=== PATIENT | female | born 1940 | race African-American/Black ===

== ENCOUNTER 2017-03-02 17:42 | Emergency (ER) | payer MEDICARE, BC ==
[~2017-03-02] VITALS: Ht 162.6 cm; Wt 100.0 kg
[~2017-03-02 17:42] MED LIST: AMLODIPINE5 MG PO; GLIPIZIDE10 M3; LIDODERM5 % EX; METFORMIN500 M1 PO; TRAMADOL HCL50 MG PO
[2017-03-02 18:34] LABS: HEMATOCRIT 38.1 % (37.0-47.0); HEMOGLOBIN 12.2 g/dl (12.0-16.0); IMMATURE GRANULOCYTES 0.5 % (0.0-1.0); MEAN CELL VOLUME 89.2 fL CALC (80.0-100.0); MEAN CORPUSCULAR HGB 28.6 pG CALC (26.0-32.0); NEUT# 5.57 thou/uL (2.00-7.15); RED BLOOD COUNT 4.27 mill/uL (4.20-5.60); RED CELL DISTRI WIDTH 14.8 % (11.5-15.5)
[2017-03-02 18:45] LABS: ALBUMIN 4.2 g/dL (3.2-5.0); BILIRUBIN, TOTAL 0.2 mg/dL (0.0-1.4); CALCIUM 9.5 mg/dL (8.4-10.2); CREATININE 1.2 mg/dL (0.5-1.0); POTASSIUM 4.1 mmol/l (3.5-5.1); TOTAL PROTEIN 7.4 g/dL (6.3-8.2)
[2017-03-02 20:04] LABS: URINE BILIRUBIN - DIPSTICK NEGATIVE (NEGATIVE); URINE BLOOD DIPSTICK SMALL (NEGATIVE); URINE COLOR YELLOW; URINE GLUCOSE - DIPSTICK >=1000 mg/dL (NEGATIVE); URINE KETONE NEGATIVE (NEGATIVE); URINE LEUK ESTERASE NEGATIVE (NEGATIVE); URINE NITRITE - DIPSTICK NEGATIVE (Negative); URINE PROTEIN - DIPSTICK 100 mg/dL (NEG-TRACE); URINE SPECIFIC GRAVITY >=1.030; URINE UROBILINOGEN - DIPSTICK 0.2 E.U./dL (0.2)
[2017-03-02 20:05] LABS: URINE CLARITY CLEAR
[2017-03-02 20:12] LABS: URINE SQUAMOUS EPITHELIAL CELL FEW EPI/hpf (0-FEW)
[2017-03-02 20:14] LABS: INFLUENZA A NONE DETECTED (NONE DETECT); INFLUENZA B NONE DETECTED (NONE DETECT)
[2017-03-02 20:56] VITALS: BP 157/80
== END 2017-03-02 21:19 | disposition left against medical advice (07) ==
LOC: ED 17:42
PROVIDERS: Emergency Medicine
DX: R06.02 Shortness of breath (principal); R09.02 Hypoxemia; J06.9 Acute upper respiratory infection, unspecified; Z91.19 Patient's noncompliance with other medical treatment and regimen; R05 Cough; F17.200 Nicotine dependence, unspecified, uncomplicated; I10 Essential (primary) hypertension; R94.31 Abnormal electrocardiogram [ECG] [EKG]

== ENCOUNTER 2017-03-03 18:01 | Emergency (ER) | payer MEDICARE, BC ==
[~2017-03-03] VITALS: Ht 162.6 cm; Wt 91.0 kg
[2017-03-03 19:26] LABS: HEMOGLOBIN 12.7 g/dl (12.0-16.0); IMMATURE GRANULOCYTES 0.4 % (0.0-1.0); MEAN CELL VOLUME 89.3 fL CALC (80.0-100.0); MEAN CORPUSCULAR HGB 28.3 pG CALC (26.0-32.0); MEAN CORPUSCULAR HGB CONC 31.8 g/L CALC (32.0-36.0); NEUT# 4.61 thou/uL (2.00-7.15); RED BLOOD COUNT 4.48 mill/uL (4.20-5.60); RED CELL DISTRI WIDTH 14.7 % (11.5-15.5)
[2017-03-03 19:46] LABS: ALBUMIN 4.4 g/dL (3.2-5.0); ALKALINE PHOSPHATASE 107 u/l (38-126); ANION GAP 16 (6-22 (CALC)); BILIRUBIN, TOTAL 0.4 mg/dL (0.0-1.4); BUN 30 mg/dL (8-23); BUN/CREATININE RATIO 31 (12-20 (CALC)); CALCIUM 9.9 mg/dL (8.4-10.2); CARBON DIOXIDE 31 mmol/l (22-30); CHLORIDE 103 mmol/l (95-108); GFR 54 ML/MIN (>=60 (CALC)); GFR FOR AFR.AMER. > 60 ML/MIN (>=60 (CALC)); GLUCOSE 204 mg/dL (82-115); POTASSIUM 4.4 mmol/l (3.5-5.1); SGOT/AST 30 u/l (9-36); SGPT/ALT 21 u/l (11-66); SODIUM 146 mmol/l (137-146); TOTAL PROTEIN 7.5 g/dL (6.3-8.2)
[2017-03-03 19:47] LABS: ACT PARTIAL THROMBO TIME 22.6 SECONDS (20.0-32.5); INTERNATIONAL NORMALIZED RATIO 0.9 RATIO (0.7-1.3); PROTHROMBIN TIME 10.3 SECONDS (9.0-12.5)
[2017-03-03 19:58] LABS: MYOGLOBIN 88 ng/mL (0 - 62)
[2017-03-04 00:11] VITALS: BP 140/74
== END 2017-03-04 00:14 | disposition short-term general hospital (02) ==
LOC: ED 18:01 → ED-I 20:50 → ED 03-04 00:14
PROVIDERS: Emergency Medicine
DX: R06.02 Shortness of breath (principal); R09.02 Hypoxemia; I10 Essential (primary) hypertension; F17.200 Nicotine dependence, unspecified, uncomplicated; E11.9 Type 2 diabetes mellitus without complications; Z79.84 Long term (current) use of oral hypoglycemic drugs

== ENCOUNTER → 2018-06-04 | Outpatient (REF) | payer MEDICARE, BC ==
[2018-06-04 10:52] LABS: ALBUMIN 4.2 g/dL (3.2-5.0); BILIRUBIN, TOTAL 0.3 mg/dL (0.0-1.4); CHOLESTEROL HDL RATIO 4.8 (<4.4 (CALC)); CREATININE 1.1 mg/dL (0.5-1.0); POTASSIUM 3.8 mmol/l (3.5-5.1); TOTAL PROTEIN 7.2 g/dL (6.3-8.2)
[2018-06-04 11:04] LABS: HEMATOCRIT 39.7 % (37.0-47.0); HEMOGLOBIN 12.9 g/dl (12.0-16.0); MEAN CELL VOLUME 88.6 fL CALC (80.0-100.0); MEAN CORPUSCULAR HGB 28.8 pG CALC (26.0-32.0); MEAN CORPUSCULAR HGB CONC 32.5 g/L CALC (32.0-36.0); RED BLOOD COUNT 4.48 mill/uL (4.20-5.60); RED CELL DISTRI WIDTH 13.6 % (11.5-15.5)
[2018-06-04 11:20] LABS: TSH, 3RD GENERATION 11.5 uIU/mL (0.47 - 4.68)
== END | disposition home or self-care (01) ==
LOC: LABSPEC 09:38
PROVIDERS: ATTEND Nurse Practitioner Family
DX: E11.65 Type 2 diabetes mellitus with hyperglycemia (principal); I10 Essential (primary) hypertension

== ENCOUNTER 2018-07-08 09:34 | Inpatient (IN) | payer MEDICARE, BC ==
[~2018-07-08] VITALS: Ht 162.6 cm; Wt 95.3 kg
--- NOTE | 2018-07-08 09:45 | NUR ---
WHEELCHAIR TO ER ROOM 9, TO BED
--- NOTE | 2018-07-08 10:00 | NUR ---
PATIENT REPORTS SOB XMONTHS WITH NON-PRODUCTIVE COUGH. LUNG SOUNDS CLEAR BILATERALLY.
[2018-07-08 10:01] LABS: HEMATOCRIT 37.5 % (37.0-47.0); HEMOGLOBIN 11.8 g/dl (12.0-16.0); IMMATURE GRANULOCYTES 0.4 % (0.0-5.0); MEAN CELL VOLUME 90.8 fL CALC (80.0-100.0); MEAN CORPUSCULAR HGB 28.6 pG CALC (26.0-32.0); MEAN CORPUSCULAR HGB CONC 31.5 g/L CALC (32.0-36.0); NEUT# 4.21 thou/uL (2.00-7.15); RED BLOOD COUNT 4.13 mill/uL (4.20-5.60); RED CELL DISTRI WIDTH 13.4 % (11.5-15.5)
--- NOTE | 2018-07-08 10:15 | NUR ---
RT UNSUCCESSFUL IN OBTAINING ABG, MADE AWARE
[2018-07-08 10:16] LABS: ALBUMIN 4.3 g/dL (3.2-5.0); BILIRUBIN, TOTAL 0.4 mg/dL (0.0-1.4); CREATININE 1.2 mg/dL (0.5-1.0); TOTAL PROTEIN 7.6 g/dL (6.3-8.2)
[2018-07-08] MEDS ORDERED: VISTARIL 50MG C50 MG PO (10:21)
[2018-07-08] MEDS ORDERED: MEVACOR10 MG PO (10:22)
[2018-07-08] MEDS ORDERED: GABAPENTIN100 MG PO (10:23)
[2018-07-08] MEDS ORDERED: LOSARTAN POTASS50 MG PO (10:24)
[2018-07-08] MEDS ORDERED: LEVOTHYROXIN125 MCG PO (10:25)
[2018-07-08] MEDS ORDERED: TRESIBA FL100 UNIT/M SC (10:26)
--- NOTE | 2018-07-08 10:30 | NUR ---
HOME MEDICATIONS BROUGHT IN BY FAMILY, REVIEWED WITH PATIENT.
--- NOTE | 2018-07-08 10:39 | NUR ---
AT BEDSIDE TO ATTEMPT TO COLLECT BLOOD GAS.
--- NOTE | 2018-07-08 11:10 | NUR ---
URINE SAMPLE COLLECTED VIA STRAIGHT CATH. PATIENT TOLERATED WELL.
[2018-07-08 11:23] LABS: URINE BILIRUBIN - DIPSTICK NEGATIVE (NEGATIVE); URINE BLOOD DIPSTICK TRACE-INTACT (NEGATIVE); URINE COLOR YELLOW; URINE GLUCOSE - DIPSTICK NEGATIVE (NEGATIVE); URINE KETONE NEGATIVE (NEGATIVE); URINE LEUK ESTERASE NEGATIVE (NEGATIVE); URINE NITRITE - DIPSTICK NEGATIVE (Negative); URINE PH 5.5 (4.5-8.0); URINE PROTEIN - DIPSTICK 100 mg/dL (NEG-TRACE); URINE SPECIFIC GRAVITY 1.025; URINE UROBILINOGEN - DIPSTICK 0.2 E.U./dL (0.2)
[2018-07-08 11:35] LABS: URINE SQUAMOUS EPITHELIAL CELL FEW EPI/hpf (0-FEW)
--- NOTE | 2018-07-08 11:56 | NUR ---
RT AT BEDSIDE FOR NEB TREATMENT.
--- NOTE | 2018-07-08 12:40 | NUR ---
REPORT CALLED TO ROSE PETERSON.
--- NOTE | 2018-07-08 12:45 | NUR ---
PATIENT TRANSPORTED TO [facility] VIA STRETCHER WITH TELE AND O2 IN PLACE. ROSE PETERSON AWARE OF PATIENT ARRIVAL TO UNIT. CARE RELINQUISHED.
--- NOTE | 2018-07-08 12:59 | NUR ---
PT TRANSPORTED TO [facility] VIA STRETCHER ACCOMPIANED BY KHRIS DICKSON @[id number]. VS DONE. PT A/O X3. SPEECH IS CLEAR. PERRLA. RESP SHALLOW. LUNG SOUNDS CLEAR. SOB NOTED. O2 @2L. TELE IN PLACE. BOWEL SOUNDS ACTIVE X4. PT C/O RUQ TENDERNESS. REPOSITIONED FOR COMFORT. STRONG RADIAL, WEAK PEDAL PULSES. #20 LAC SL. FLUSHED AND PATENT. SITE APPEARS HEALTHY. PT DENIES ANY PAIN OR NEEDS. POC DISCUSSED. SAFETY PRECAUTIONS IN PLACE. CALL LIGHT IN REACH. WILL CONTINUE TO MONITOR.
--- NOTE | 2018-07-08 13:06 | NUR ---
PT VERY UPSET, WALKED UP TO NURSES STATION W/ TELE REMOVED. PT STATES HE IS READY TO GO HOME. ENCOURAGED PT TO STAY BUT HE REFUSES. HE SIGNED AMA PAPERS AND GOES BACK INTO HIS ROOM. UPON HIM AND HIS LEAVING SHE TOLD HIM HE NEEDS TO STAY TO TALK W/ THE DOCTOR BEFORE DISCHARGE. PT DECIDES HE WILL STAY UNTIL 4PM IF NO DOCTOR SHOWS UP HE WILL LEAVE.
[2018-07-08 13:38] VITALS: BP 183/100
--- NOTE | 2018-07-08 13:43 | NUR ---
PT BP READING 183/100, PULSE 91. KRYSTAL,FRONT DESK CLERK NOTFIED. NEW ORDERS AT THIS TIME. WILL CONTINUE TO MONITOR.
--- NOTE | 2018-07-08 14:38 | NUR ---
PT VERY ANXIOUS, PT REQUESTING SOMETHING TO HELP HER REST AND A MASK TO PUT ON HER FACE INSTEAD OF THE NASAL CANNULA. ROSA RICE MADE AWARE. NO NEW MEDICATION ORDERS TO DUE TO PT HAVING SOME SOB, INSTRUCTED TO MONITOR. RT CALLED TO ASSIST PT. RT IN ROOM W/ PT AT THIS TIME. WILL CONTINUE TO ,MONITOR.
[2018-07-08 15:08] VITALS: BP 190/95
--- NOTE | 2018-07-08 17:43 | NUR ---
PT LYING IN BED. NO C/O PAIN OR NEEDS. BREATHING APPEARS EASIED AT THIS TIME; O2 ON, HOB ELEVATED. CALL LIGHT IN REACH. WILL CONTINUE TO MONITOR.
[2018-07-08 18:30] VITALS: BP 184/92
--- NOTE | 2018-07-08 18:30 | NUR ---
PT READING 184/92, PULSE 104. KRYSTAL LEE NOTIFIED. NEW ORDERS AT THIS TIME.
--- NOTE | 2018-07-08 19:00 | NUR ---
REPORT RECEIVED FROM ROSE PETERSON. PT RESTING IN BED. NO SIGNS OR SYMPTOMS OF DISTRESS A THIS TIME. WILL CONTINUE TO MONITOR.
--- NOTE | 2018-07-08 20:30 | NUR ---
PT RESTING IN BED. PT ASKING FOR SOMETHING TO HEP HER SLEEP, TRAUMA SURGEON MD TO BE NOTIFIED. PT ON O2 @ 2L VIA NC. SAFETY PRECUATIONS IN PLACE WILL CONTINUE TO MONITOR.
[2018-07-09] VITALS (17 sets, daily range): BP systolic 107–200; BP diastolic 54–110
--- NOTE | 2018-07-09 00:40 | NUR ---
PT REPORTS HAVING A HEAD ACHE OVER CALL DE LEON, WHEN ENTERING PT ROOM, PT DENIES HAVING ANY PAIN. SAFETY PRECAUTIONS IN PLACE. WILL CONTINUE TO MONITOR.
--- NOTE | 2018-07-09 04:00 | NUR ---
PT RESTING IN BED. ALERT AND ORIENTED. PT REPORTS FEELING SHORT OF BREATH. RESPIRATIONS SHALLOW O2 STATS @ 98%. NO SIGNS OF DISTRESS AT THIS TIME. WILL CONTINUE TO MONITOR.
[2018-07-09 06:30] LABS: HEMATOCRIT 36.4 % (37.0-47.0); HEMOGLOBIN 11.8 g/dl (12.0-16.0); IMMATURE GRANULOCYTES 0.3 % (0.0-5.0); MEAN CELL VOLUME 88.8 fL CALC (80.0-100.0); MEAN CORPUSCULAR HGB 28.8 pG CALC (26.0-32.0); MEAN CORPUSCULAR HGB CONC 32.4 g/L CALC (32.0-36.0); NEUT# 7.36 thou/uL (2.00-7.15); RED BLOOD COUNT 4.1 mill/uL (4.20-5.60); RED CELL DISTRI WIDTH 13.1 % (11.5-15.5)
[2018-07-09 06:45] LABS: ANION GAP 15 (6-22 (CALC)); BUN 15 mg/dL (8-23); BUN/CREATININE RATIO 29 (12-20 (CALC)); CALCULATED LDLCHOLESTEROL 69 mg/dL (62-129 (CALC)); CARBON DIOXIDE 23 mmol/l (22-30); CHLORIDE 107 mmol/l (95-108); CHOLESTEROL HDL RATIO 2.6 (<4.4 (CALC)); CREATININE 0.5 mg/dL (0.5-1.0); GFR > 60 ML/MIN (>=60 (CALC)); GFR FOR AFR.AMER. > 60 ML/MIN (>=60 (CALC)); HDL CHOLESTEROL 47 mg/dL (>=40); POTASSIUM 3.6 mmol/l (3.5-5.1); SODIUM 141 mmol/l (137-146); TOTAL TRIGLYCERIDES 36 mg/dl (30-149); VLDL CHOLESTROL 7 mg/dl (0-48 (CALC))
[2018-07-09 06:47] LABS: TOTAL CHOLESTEROL 123 mg/dl (0-199)
--- NOTE | 2018-07-09 07:30 | NUR ---
ASSESSMENT IS COMPLETED: IV SITE IS FREE FROM REDNESS OR EDEMA. HR IS REG, PULSES ARE STRONG X4, ABD IS SOFT WITH ACTIVE BS. BREATH SOUNDS ARE CLEAR. BILATERALLY., PT WAS ON THE BSC. THIS AM. CONTINUE TO OSEBRVE AND MONITOR.
--- NOTE | 2018-07-09 09:12 | NUR ---
RECEIVED A CALL FROM HER DAUGHTER NEO INQUIRED "HOW WAS SHE DOING, DID THE DR COME AND SEE HER YET?"
[2018-07-09 12:33] LABS: CREATININE 1.1 mg/dL (0.5-1.0); POTASSIUM 4.3 mmol/l (3.5-5.1)
--- NOTE | 2018-07-09 12:45 | NUR ---
PT IS RELAXING IN BED WITH NO DISTRESS NOTED. IV SITE IS FREE FROM REDNESS OR EDMEA. FAMILY IN THE ROOM.
--- NOTE | 2018-07-09 13:45 | NUR ---
DR. PERRIN. IN TO VISIT WITH PT.
--- NOTE | 2018-07-09 16:30 | NUR ---
PT HAS BEEN TRYING TO REST. NO DISTRESS NOTED. IV SITE IS FREE FROM REDNESS OR EDEMA.
--- NOTE | 2018-07-09 18:30 | NUR ---
SPOKE WITH RE: LAB RESULT OF GLUCOSE 417 NEW ORDER OBTAINED AND ADMINISTERED
--- NOTE | 2018-07-09 19:15 | NUR ---
bed alarm sounding. pt on bsc. iv pulled out. linens changed. assisted to bed. iv restarted. bed alarm reactivated.
--- NOTE | 2018-07-09 19:50 | NUR ---
1924-PATIENT RESTING IN BED WITH O2 VIA NASAL CANNULA IN PLACE. PATIENT IS ANXIOUS AND STATES THAT SHE CAN'T BREATH-PATIENT REPOSITION AND SITTING UPRIGHT-VERY ANXIOUS. PATIENT IS TACHYPENIC AND TACHYCARDIC. O2 SATS FELL FROM LOW 90'S TO MID 80'5 DOWN TO 79. RT CALLED STAT. PATIENT PLACED ON VENTI-MASK BUT STILL ONLY UP TO THE 80'S O2 SATS. IV SITE TO LEFT AC HEALTHY 1929-RT AT BEDSIDE AND DR. ZARCO CALLED-ORDERS RECEIVED TO PLACE ON BI-PAP AND TRANSFER TO ICU. 1944-PATIENT PLACED ON BI-PAP BY RT AND PATIENT TRANSFERRED TO ICU BED8 VIA BED. PATIENT RESPONDING WELL TO BIPAP-RESP HAVE SLOWED AND PATIENT HAS CALMED DOWN. O2 SATS MUCH IMPROVED TO HIGH 90'S. BP HIGH ON ARRIVAL TO ICU. BEDSIDE REPORT GIVEN TO THERESE PINEOD.
--- NOTE | 2018-07-09 19:54 | NUR ---
PT ARRIVED TO UNIT VIA BED WITH 3 MEDSURG STAFF; PT SITTING UP IN BED WITH BIPAP IN PLACE; ALERT AND ORIENTED; BREATHING LABORED. SINUS TACH AT 110 ON TELEMETRY; BLOOD PRESSURE 200/110; APRESOLINE GIVEN IMMEDIATELY AND CONNECTED TO ATTACHMENTS. RT AND BEDSIDE AND BEDSIDE REPORT RECEIVED FROM KHRIS LOGAN.
--- NOTE | 2018-07-09 19:58 | NUR ---
RADIOLOGY AT BEDSIDE FOR STAT XRAY.
--- NOTE | 2018-07-09 20:01 | NUR ---
DR. BERNAL NOTIFED OF ABG'S RESULTS AND CLINICAL PRESENATION OF PATIENT; NO NEW ORDERS AT THIS TIME. BLOOD PRESSURE DOWN TO 134/104. RESPIRATIONS ARE IMPROVING CURRENLTY 30 RPM; 99% OXYGEN SATURATION WITH BIPAP SETTINGS AT 40% FIO2.
--- NOTE | 2018-07-09 20:14 | NUR ---
RT DECREASED FIO2 TO 30%; WILL MONTIOR OXYGEN SATURATIONS. PT MOSTLY CONCERNED THAT HER FEET ARE ITCHING.
--- NOTE | 2018-07-09 20:54 | NUR ---
DR. BERNAL NOTIFIED OF FS 378; NEW ORDER FOR 10 UNITS OF NOVOLOG TONIGHT ALONG WITH SCHEDULED LEVEMIR.
--- NOTE | 2018-07-09 21:00 | NUR ---
DAUGHTER BONILLA RETURN CALL AND UPDATED ON HER MOTHER STATUS AND THAT SHE HAD BEEN TRANSFERRED TO ICU8 AND PLACE ON BIPAP FOR RESP ISSUES. BONILLA VERBALIZED UNDERSTANDING. WILL CALL ICU FOR FURTHER INFO.
--- NOTE | 2018-07-09 21:24 | NUR ---
BIPAP REMOVED AND PT PLACED ON 3L VIA NC TO TAKE PO MEDICATIONS; TOLERATED WELL. SITTING UP 97% ON OXYGEN. BROTHER FROM [place] AND BOTH DAUGHTERS CALLED FOR UPDATES; PERMISSION RECEIVED FROM PT TO UPDATE FAMILY.
--- NOTE | 2018-07-09 21:46 | NUR ---
DAUGHTER AT BEDSIDE. RT REAPPLIED BIPAP AND GAVE BREATHING TREATMENT.
--- NOTE | 2018-07-09 22:36 | NUR ---
PT IS ANXIOUS WITH ELEVATED BLOOD PRESSURE. [id number] MIDSTERNAL CHEST PAIN 8/10 AND STATES SHE WANTS SOME WATER. TYLENOL AND LABETOLOL ADMINISTERED. RT AT BEDSIDE FOR EKG AND STAT TROP ORDERED.
--- NOTE | 2018-07-09 23:10 | NUR ---
PT STATES THAT CHEST PAIN HAS SUBSIDED; BLOOD PRESSURE DOWN TO 107/54. EKG REMAINS THE SAME. TROPONIN CANCELLED LAST 4 DRAWN HAVE BEEN NEGATIVE. PT RESTING IN HIGH FOWLERS WITH BIPAP ON.
[2018-07-10] VITALS (17 sets, daily range): BP systolic 100–166; BP diastolic 50–86
--- NOTE | 2018-07-10 01:38 | NUR ---
PT RESTING WITH NO SIGNS OF DISTRESS. BIPAP SETTINGS UNCHANGED. IV SITE APPEARS HEALTHY AND FLUSHES. VS STABLE.
--- NOTE | 2018-07-10 04:45 | NUR ---
PT ASLEEP WITH NO SIGNS OF DISRESS; RESPIRATIONS EVEN AND UNLABORED ON BIPAP. BLOOD SUGAR 144. PT ENCOURAGED TO SIT UP ON BSC TO VOID; URINARY INCONTINENCE NOTED TO BRIEF; HYGIENE PROVIDED AND PT SITTING UP ON BSC CURRENTLY.
--- NOTE | 2018-07-10 05:22 | NUR ---
ASSISTED BACK INTO BED; NO FURTHER VOID, ONLY LARGE INCONTENCE IN BRIEF. RT AT BEDSIDE FOR BREATHING TREATMENT.
[2018-07-10 05:26] LABS: HEMATOCRIT 37.4 % (37.0-47.0); HEMOGLOBIN 11.8 g/dl (12.0-16.0); IMMATURE GRANULOCYTES 0.6 % (0.0-5.0); MEAN CELL VOLUME 90.1 fL CALC (80.0-100.0); MEAN CORPUSCULAR HGB 28.4 pG CALC (26.0-32.0); MEAN CORPUSCULAR HGB CONC 31.6 g/L CALC (32.0-36.0); NEUT# 10.67 thou/uL (2.00-7.15); RED BLOOD COUNT 4.15 mill/uL (4.20-5.60); RED CELL DISTRI WIDTH 13.4 % (11.5-15.5)
[2018-07-10 05:52] LABS: ALBUMIN 4.3 g/dL (3.2-5.0); BILIRUBIN, TOTAL 0.4 mg/dL (0.0-1.4); CREATININE 1.7 mg/dL (0.5-1.0); MAGNESIUM 2.1 mg/dL (1.6-2.3); TOTAL PROTEIN 7.2 g/dL (6.3-8.2)
--- NOTE | 2018-07-10 07:00 | NUR ---
PT RESTING IN BED AT THIS TIME. WILL CONTINUE TO MONITOR
--- NOTE | 2018-07-10 07:44 | NUR ---
RT AT BEDSIDE. BIPAP REMOVED AT THIS TIME. PT IS ALERT AND ORIENTED X3. SHIFT ASSESSMENT COMPLETED AT THIS TIME. PT SET UP FOR AM MEAL. IV PATENT. CALL LIGHT IN REACH. WILL CONTINUE TO MONITOR.
--- NOTE | 2018-07-10 10:55 | NUR ---
DR PERRIN AT BEDSIDE AT THIS TIME WITH DAUGHTER IN ROOM TO DISCUSS PLAN OF CARE. NEW ORDERS RECEIVED.
--- NOTE | 2018-07-10 11:42 | NUR ---
RADIOLOGY AT BEDSIDE TO COMPLETE KIDNEY ULTRASOUND.
--- NOTE | 2018-07-10 12:03 | NUR ---
PT SET UP FOR LUNCH MEAL AT THIS TIME.
--- NOTE | 2018-07-10 13:20 | NUR ---
PT TO RADIOLOGY VIA WHEELCHAIR ACCOMPANIED BY NURSE. PT REMAINED ON O2 THROUGHOUT TRANSFER.
--- NOTE | 2018-07-10 13:35 | NUR ---
PT RETURNED FROM RADIOLOGY VIA WHEELCHAIR IN STABLE CONDITION. PLACED BACK ON SALES REPRESENTATIVE SALES MANAGER. CALL LIGHT IN REACH. WILL CONTINUE TO [facility].
--- NOTE | 2018-07-10 14:03 | NUR ---
SPOKE WITH DESMOND IN CASE MANAGEMENT WHO SPOKE TO ENA. PT IS REFUSING HOME O2 AND REFUSING CPAP PER ENA. SHE IS DUE FOR A NEW CPAP SEPTEMBER 2018. DAUGHTER NEO NOTIFIED. ASKED TO BRING IN HOME MACHINE TOMORROW. DAUGHTER VERBALIZED UNDERSTANDING.
--- NOTE | 2018-07-10 14:40 | NUR ---
SNACK PROVIDED PER PT REQUEST
--- NOTE | 2018-07-10 16:05 | NUR ---
STRATEGIC PARTNERSHIP MANAGER AT BEDSIDE AT THIS TIME
--- NOTE | 2018-07-10 16:50 | NUR ---
PT SITTING UP IN BED WATCHING TV. RESP ARE EVEN AND UNLABORED. NO DISTRESS NOTED. CALL LIGHT IN REACH. WILL CONTINUE TO MONITOR.
--- NOTE | 2018-07-10 16:59 | NUR ---
BROTHER FROM [place] CALLED REQUESTING CODE STATING HE HAD NOT RECEIVED CODE FROM SISTER AT THIS TIME. ASKED PT IF IT WAS OK TO GIVE CODE AND HEALTH INFORMATION TO BROTHER OVER PHONE. PT SHOOK HEAD INDICATING NO. PT DID DECIDE THAT SHE WOULD SPEAK TO BROTHER VIA TELEPHONE. PHONE PROVIDED.
--- NOTE | 2018-07-10 17:47 | NUR ---
PT SET UP WITH EVENING MEAL TRAY
--- NOTE | 2018-07-10 18:45 | NUR ---
RECEIVED PT SITTING ON BEDSIDE COMMODE. PT VOIDED 300ML OF CLEAR YELLOW URINE. ASSISTED BACK IN TO BED WITH MINIMAL ASSIST. PT DENIES ANY SHORTNESS OF BREATH WITH EXERTION. ASSESSMENT COMPLETE. ALERT, ORIENTED X3. LULA BREATH SOUNDS CLEAR, DIMINISHED BASES. 02 AT 3L PER NC. SKIN WARM AND DRY, INTACT. DISCUSSED PLAN OF CARE. DENIES ANY NEEDS. CALL LIGHT WITHIN REACH.
--- NOTE | 2018-07-10 20:30 | NUR ---
PTS DAUGHTER AT BEDSIDE. PT CONVERSING.
--- NOTE | 2018-07-10 21:38 | NUR ---
HS SNACK PROVIDED. ACCU CHECK 398, NOTIFIED DR BERNAL, NEW ORDERES RECEIVED. PT TOLERATED HS MEDS WELL. WATCHING TV.
--- NOTE | 2018-07-10 22:31 | NUR ---
RT AT BEDSIDE, PT PLACED ON BIPAP.
[2018-07-11] VITALS (13 sets, daily range): BP systolic 112–200; BP diastolic 63–101
--- NOTE | 2018-07-11 00:13 | NUR ---
PT RESTING WITH EYES CLOSED. BIPAP IN PLACE. RESP EASY. EASLIY AROUSABLE. ANTIBIOTICS INITIATED. DENIES ANY NEEDS.
--- NOTE | 2018-07-11 02:00 | NUR ---
PT IN MID-FOWLERS, EYES CLOSED. RESP EASY. SB WITH HR OF 59. SCHEDLUED MEDS GIVEN.
--- NOTE | 2018-07-11 04:33 | NUR ---
NO CHANGES IN ASSESSMENT. RT AT BEDSIDE. NO SIGNS OF DISTRESS. RESP NONLABORED.
[2018-07-11 05:28] LABS: HEMATOCRIT 33.5 % (37.0-47.0); HEMOGLOBIN 10.7 g/dl (12.0-16.0); IMMATURE GRANULOCYTES 0.4 % (0.0-5.0); MEAN CELL VOLUME 90.8 fL CALC (80.0-100.0); MEAN CORPUSCULAR HGB CONC 31.9 g/L CALC (32.0-36.0); NEUT# 7.81 thou/uL (2.00-7.15); RED BLOOD COUNT 3.69 mill/uL (4.20-5.60); RED CELL DISTRI WIDTH 13.2 % (11.5-15.5)
[2018-07-11 05:47] LABS: ALBUMIN 3.5 g/dL (3.2-5.0); BILIRUBIN, TOTAL 0.3 mg/dL (0.0-1.4); CREATININE 1.6 mg/dL (0.5-1.0); MAGNESIUM 2.1 mg/dL (1.6-2.3); POTASSIUM 4.8 mmol/l (3.5-5.1)
--- NOTE | 2018-07-11 05:51 | NUR ---
PT AWAKEN FOR AM NEX TX, RT AT BEDSIDE. SCHEDULED MEDS GIVEN AND TOLERATED WELL.
--- NOTE | 2018-07-11 07:30 | NUR ---
PT RESTING IN BED ON BIPAP. ADMISSION ASSESSMENT COMPLETED. IV PATENT X1. BIPAP REMOVED AND PT SET UP FOR AM MEAL. CALL LIGHT IN REACH. WILL CONTINUE TO MONITOR.
--- NOTE | 2018-07-11 07:35 | NUR ---
BIPAP STANDBY. PLACED ON 3L NC.
--- NOTE | 2018-07-11 08:21 | NUR ---
PT REMOVED O2 NC. PT STATES THAT SHE WANTS TO GO HOME. EXPLAINED THAT O2 SAT DROPS WHEN SHE TAKES OFF THE OXYGEN AND THAT SHE NEEDS TO LEAVBE IT ON. PT CONTINUES TO REQUEST TO GO HOME. EXPLAINED THAT SHE WILL NEED TO TALK TO THE DOC ABOUT DISCHARGE.
--- NOTE | 2018-07-11 09:30 | NUR ---
PT RESTING IN BED WATCHING TV. RESP ARE EVEN AND UNLABORED. NO DISTRESS NOTED. CALL LIGHT IN REACH. WILL CONTINUE TO MONITE.
--- NOTE | 2018-07-11 11:30 | NUR ---
DR PERRIN AT BEDSIDE TO DISCUSS PLAN OF CARE.
--- NOTE | 2018-07-11 11:40 | NUR ---
PT SET UP FOR NOON MEAL.
--- NOTE | 2018-07-11 12:21 | NUR ---
VISITORS IN ROOM.PT SITTIN UP VISITING WITH VISITORS. CALL LIGHT IN REACH. WILL CONTINUE TO MONITOR
--- NOTE | 2018-07-11 12:45 | NUR ---
PT ASSISTED TO BSC TO VOID. PT GIVEN PERSONAL CARE AND LINENS CHANGED AT THIS TIME. PT TOLERATED WELL.
--- NOTE | 2018-07-11 12:53 | NUR ---
APRESOLINE GIVEN IV PUSH PER MAR
--- NOTE | 2018-07-11 13:15 | NUR ---
PHYSICAL THERAPY INTO ROOM TO SEE PATIENT
--- NOTE | 2018-07-11 13:16 | NUR ---
PT WITH COMPLAINTS OF IV SITE BURNING. IV DC'D TO LAC.
--- NOTE | 2018-07-11 13:46 | NUR ---
PHYSICAL THERAPY REPORTS TO NURSE THAT PTWITH STEADY GAIT
--- NOTE | 2018-07-11 14:12 | NUR ---
16 FR FISHER PLACED USING STERILE TECHNIQUE. IMMEADIATE RETURN OF URINE. PT TOLERATED WELL
--- NOTE | 2018-07-11 14:30 | NUR ---
UNSUCCESSFUL ATTMEPTS FOR IV ACCESS. AWAITING ADDITIONAL STAFF FOR ASSISTANCE
--- NOTE | 2018-07-11 14:50 | NUR ---
THERAPY DONE FOR EVAL (LOW) AND INITIATED GAIT WITH A ROLLING WALKER AND O2 AM-PAC 6 CLICK SCORE WAS 14 INDICATIVE OF DC TO A SNF AT THIS TIME.
--- NOTE | 2018-07-11 15:36 | NUR ---
PT NOW REFUSING IV ACCESS AFTER ADDITIONAL STAFF ATTEMPTED WITH ULTRASOUND MACHINE. DR. PERRIN NOTIFIED OK'D VERBAL HOLD ON IV MEDS UNTIL MIDLINE IS PLACED.
--- NOTE | 2018-07-11 16:29 | NUR ---
PT RESTING IN BED WATCHING TV. RESP ARE EVEN AND UNLABORED. NO DISTRESS NOTED. CALL LIGHT INR EACH. WILL CONTINUE TO MONITR
--- NOTE | 2018-07-11 17:35 | NUR ---
PT SET UP WITH PM MEAL
--- NOTE | 2018-07-11 18:25 | NUR ---
PT RESTING IN BED WATCHING TV CALL LIGHT IN REACH. WILL CONTINUE TO MONITOR.
--- NOTE | 2018-07-11 19:30 | NUR ---
PATIENT LYING IN BED. ALERT AND ORIENTED X3. ON 3 LITERS NASAL CANULA HUMIDIFIED. NO COMPLAINTS OF PAIN OR SHORTNESS OF BREATH. DAUGHTER DROPPED OFF HOME CPAP AND PATIENT BECAME UPSET, DAUGHTER SAID GOOD NIGHT AND WALKED OUT UPSET WELL. RT NOTIFIED OF HOME CPAP AT BEDSIDE. NO IV SITE. PATIENT EDUCATED OF DIABETIC AND LOW SODIUM DIET. CALL LIGHT WITHIN REACH.
--- NOTE | 2018-07-11 22:12 | NUR ---
PATIENT SELF REPOSITIONS, WATCHING TV. ON 3 LITERS NASAL CANNULA HUMIDIFIED. NO COMPLAINTS OF PAIN OR SHORTNESS OF BREATH. NO ACUTE DISTRESS SHOWN. CALL LIGHT WITHIN REACH.
[2018-07-12] VITALS (10 sets, daily range): BP systolic 105–164; BP diastolic 55–90
--- NOTE | 2018-07-12 00:05 | NUR ---
PATIENT SLEEPING AND WEARING HER BIPAP. NO NEEDS AT THIS TIME.
--- NOTE | 2018-07-12 02:05 | NUR ---
PATIENT SLEEPING AND WEARING BIPAP. CALL LIGHT WITHIN REACH.
--- NOTE | 2018-07-12 04:08 | NUR ---
BIPAP IN PLACE, PATIENT SLEEPING. NO ACUTE DISTRESS SHOWN. IFSHER INTACT. CALL LIGHT WITHIN REACH.
--- NOTE | 2018-07-12 04:27 | NUR ---
PATIENT REQUESTING BIPAP OFF, PUT HER ON 3 LITERS NASAL CANULA HUMIDIFIED, SHE AWOKE CONFUSED AND WAS REORIENTED. RT NOTIFIED.
--- NOTE | 2018-07-12 06:12 | NUR ---
PATIENT LYING IN BED, ABLE TO SELF REPOSITION. ON 3 LITERS NASAL CANNULA. NO COMPLAINTS OF PAIN OR SHORTNESS OF BREATH, NO ACUTE DISTRESS SHOWN. PATIENT REQUESTING SOMETHING TO EAT AND I OFFERED HER A SNACK BEFORE BREAKFAST BUT SHE REQUESTS "FOOD", LET HER KNOW BREAKFAST WILL COME SOON. BROUGHT HER APPLE JUICE PER REQUEST. CALL LIGHT WITHIN REACH.
--- NOTE | 2018-07-12 07:15 | NUR ---
PT RESTING IN BED WATCHING TV. PT IS ALERT AND ORIENTED X3. SHIFT ASSESSMENT COMPLETED AT THIS TIME. CALL LIGHT IN REACH. WILL CONTINUE TO MONITOR
--- NOTE | 2018-07-12 07:29 | NUR ---
PT ASSISTED UP TO CHAIR FOR BREAKFAST AND AM CARE. EXPLAINED TO PT IMPORTANCE OF NOT JUST LAYING IN BED. PT VERBALIZED UNDERSTANDING.
--- NOTE | 2018-07-12 08:30 | NUR ---
PT REMAINS UP IN CHAIR AT THIS TIME. AM CARE PROVIDED. CALL LIGHT IN REACH. WILL COTNINUE TO MONITOR.
--- NOTE | 2018-07-12 09:00 | NUR ---
AM MEDS GIVEN PER MAR
--- NOTE | 2018-07-12 09:20 | NUR ---
PT TO [facility] WHEELCHAIR FOR PICC LINE INSERTION ACCOMPANIED BY NURSE IN STABLE CONDITION ON O2 3L NC.
--- NOTE | 2018-07-12 10:36 | NUR ---
PT RETURNED FROM RADIOLOGY VIA IN STABLE CONDITION. PT ASSISTED TO RECLINER. CALL LIGHT IN REACH. WILL CONTINUE TO MONITOR.
--- NOTE | 2018-07-12 10:39 | NUR ---
EXLAINED TO PT THAT RT HAD EXAMINED HOME CPAP MACHINE AND MACHINE IS IN WORKING CONDITION. PT VERBALIZED UNDERSTANDING.
--- NOTE | 2018-07-12 10:55 | NUR ---
AM LABS DRAWN FROM [facility] TO [facility].
--- NOTE | 2018-07-12 11:00 | NUR ---
DR PERRIN AT BEDSIDE TO DISCUSS PLAN OF CARE
--- NOTE | 2018-07-12 11:15 | NUR ---
PT INTO ROOM [facility] PT
[2018-07-12 11:24] LABS: HEMATOCRIT 33.9 % (37.0-47.0); HEMOGLOBIN 10.7 g/dl (12.0-16.0); IMMATURE GRANULOCYTES 0.7 % (0.0-5.0); MEAN CELL VOLUME 91.6 fL CALC (80.0-100.0); MEAN CORPUSCULAR HGB 28.9 pG CALC (26.0-32.0); MEAN CORPUSCULAR HGB CONC 31.6 g/L CALC (32.0-36.0); NEUT# 5.89 thou/uL (2.00-7.15); RED BLOOD COUNT 3.7 mill/uL (4.20-5.60); RED CELL DISTRI WIDTH 13.2 % (11.5-15.5)
--- NOTE | 2018-07-12 11:30 | NUR ---
PT SET UP FOR NOON MEAL
[2018-07-12 11:53] LABS: ALBUMIN 3.5 g/dL (3.2-5.0); BILIRUBIN, TOTAL 0.3 mg/dL (0.0-1.4); CREATININE 1.3 mg/dL (0.5-1.0); MAGNESIUM 1.9 mg/dL (1.6-2.3); POTASSIUM 4.6 mmol/l (3.5-5.1)
--- NOTE | 2018-07-12 12:47 | NUR ---
The patient presents up in bedside chair. She is dyspneic 2 at rest on 2 liters NC. She performs sit to stand and ambulates in place 30 sec with 1 rest period. She does so with mod assist of 1 Am Pac score is 11 indicating she would do well in LTAC or swing bed for best recovery. Our plan is to continue monitored rehab- she is given a written exercise program of APs, quad sets and gluteal sets and reviewed priniciples of controlled breathing
--- NOTE | 2018-07-12 12:50 | NUR ---
PT ASSISTED BACK TO BED PER PT REQUEST
--- NOTE | 2018-07-12 15:04 | NUR ---
SEAN GAVE ROOM 272 FOR MED SURG ASSIGNMENT
--- NOTE | 2018-07-12 15:28 | NUR ---
NURSE T NURSE REPORT PROVIDED TO Emile SMITH LPN VIA PHONE
--- NOTE | 2018-07-12 15:56 | NUR ---
PT TO ROOM 272 VIA WHEELCHAIR ACCOMPANIED BY NURSE.
--- NOTE | 2018-07-12 16:35 | NUR ---
pt is currently sitting in the [facility].
--- NOTE | 2018-07-12 16:35 | NUR ---
pt arrived from icu via wc accompanied by staff/ at 1610. iv site is free from redness or edema. reynolds intact
--- NOTE | 2018-07-12 18:04 | NUR ---
DISREGARD EVAL. WRONG PATIENT.
--- NOTE | 2018-07-12 19:00 | NUR ---
REPORT RECIEVED FROM ROSE ESTRADA. PT RESTING IN CHAIR AT BEDSIDE TALKING ON THE PHONE. SAFETY PRECAUTIONS IN PLACE. WILL CONTINUE TO MONITOR.
--- NOTE | 2018-07-12 21:30 | NUR ---
PT RESTING IN BED. PT CONFUSED ABOUT WHERE SHE IS, ASKING "WHERE AM I AT" REORIENTED PT. RESPIRATIONS SHALLOW ON O2 @ 3L, LUNGS SOUND DIMINISHED. PEDAL PULSES WEAK. PICC IN UPPER RIGHT ARM PATENT AND APPEARS HEALTHY. TELE MONITOR IN PLACE. FISHER DRAINING TO GRAVITY. WILL CONTINUE TO MONITOR.
[2018-07-13] VITALS (8 sets, daily range): BP systolic 147–214; BP diastolic 68–97
--- NOTE | 2018-07-13 02:04 | NUR ---
PT RESTING IN BED WITH EYES CLOSED. RESPIRATIONS SHALLOW ON 02 @ 3L DAILY NC. TELE MONITOR IN PLACE. CALL DE LEON WITHIN REACH WILL CONTINUE TO MONITOR.
--- NOTE | 2018-07-13 04:16 | NUR ---
PT RESTING IN BED. PT DENIES ANY PAIN OR DISCOMFORT. RESPIRATIONS SHALLOW ON O2 @ 3L, VIA NC. SAFETY PRECAUTIONS IN PLACE. WILL CONTINUE TO MONITOR.
[2018-07-13 05:32] LABS: HEMATOCRIT 33.3 % (37.0-47.0); HEMOGLOBIN 10.6 g/dl (12.0-16.0); IMMATURE GRANULOCYTES 0.8 % (0.0-5.0); MEAN CELL VOLUME 89.3 fL CALC (80.0-100.0); MEAN CORPUSCULAR HGB 28.4 pG CALC (26.0-32.0); MEAN CORPUSCULAR HGB CONC 31.8 g/L CALC (32.0-36.0); NEUT# 6.41 thou/uL (2.00-7.15); RED BLOOD COUNT 3.73 mill/uL (4.20-5.60); RED CELL DISTRI WIDTH 12.8 % (11.5-15.5)
[2018-07-13 06:07] LABS: ALBUMIN 3.5 g/dL (3.2-5.0); BILIRUBIN, TOTAL 0.3 mg/dL (0.0-1.4); CREATININE 1.1 mg/dL (0.5-1.0); MAGNESIUM 1.9 mg/dL (1.6-2.3); POTASSIUM 5.1 mmol/l (3.5-5.1); TOTAL PROTEIN 6.1 g/dL (6.3-8.2)
--- NOTE | 2018-07-13 07:05 | NUR ---
PT REPORT RECIEVED FROM KHRIS GREY. PT SLEEPING. NO S/S OF DISTRESS. CALL LIGHT IN REACH. WILL CONTINUE TO MONITOR.
--- NOTE | 2018-07-13 08:05 | NUR ---
PT A/O X3. SPEECH IS CLEAR. RESP EVEN AND UNLABORED. LUNG SOUNDS CLEAR. TELE IN PLACE. O2 @3L ON PT. BOWEL SOUNDS ACTIVE X4. STRONG RADIAL AND PEDAL PULSES. PICC JOSIE SL. FLUSHED AND PATENT. SITE APPEARS HEALTHY. FISHER INTACT; DRAINING CLEAR YELLOW URINE. PT DENIES ANY PAIN OR NEEDS. POC DISCUSSED. SAFETY PRECAUTIONS IN PLACE. CALL LIGHT IN REACH. WILL CONTINUE TO MONITOR.
--- NOTE | 2018-07-13 12:00 | NUR ---
PHYSICAL THERAPY IN TO SEE PT
--- NOTE | 2018-07-13 12:05 | NUR ---
PT EATING LUNCH. NO C/O PAIN OR NEEDS. TELE IN PLACE. CALL LIGHT IN REACH. WILL CONTINUE TO MONITOR.
--- NOTE | 2018-07-13 12:05 | NUR ---
Pt. found resting in recliner with O2 at 3L via NC. Pt. refused gait training, however in agreement to participate in therapeutic exercises x 15 minutes. O2 sats monitored and maintained above 94% during exercise. In sitting the pt. was provided with instruction and demonstration followed by completion of seated active heel - toe raises, AROM bilateral knee extensions, marching and PROM shoulder flexion below 90 degrees. Each ex. completed 2 sets of 10 repetitions with rest periods between sets. Pt. left resting comfortably in recliner without questions/concerns. Call light reviewed and left within reach. Treatment time was 10:40 AM to 11 AM.
--- NOTE | 2018-07-13 16:39 | NUR ---
PT SLEEPING IN BED. NO C/O PAIN OR NEEDS. CALL LIGHT IN REACH. WILL CONTINUE TO MONITOR.
--- NOTE | 2018-07-13 19:47 | NUR ---
REPORT RECIVED FROM ROSE PETERSON. PT RESTING IN BED. RESPIRATIONS SHALLOW ON O2 @ 3L, LUNGS SOUND DIMINISHED. REPOSITIONED PT PER PT REQUEST. PT STATES "AT NIGHT I START TO GET THIS NAGGING AT THE BACK OF NECK, I GET A HEAD ACHE" OFFERED PT WARM PACK. FISHER DRAINING TO GRAVITY. TRIPPLE LUMMEN PICC IN UPPER RIGHT ARM APPEARS HEALTHY. SAFETY PRECAUTIONS IN PLACE. WILL CONTINUET TO MONITOR.
--- NOTE | 2018-07-14 | NUR ---
PT RESTING IN BED WITH EYES CLOSED. RESPIRATIONS SHALLOW/NONLABORED ON O2 @ 3L, VIA NC. SAFETY PRECAUTIONS IN PLACE. WILL CONTINUE TO MONITOR.
[2018-07-14 00:13] VITALS: BP 146/54
--- NOTE | 2018-07-14 04:10 | NUR ---
PT RESTING IN BED WITH EYES CLOSED. RESPIRATIONS EVEN AND UNLABORED ON O2 @ 3L. NO SIGNS OR SYMPTOMS OF DISTRESS. SAFETY PRECAUTIONS IN PLACE. WILL CONTINUE TO MONITOR.
[2018-07-14 04:12] VITALS: BP 164/69
--- NOTE | 2018-07-14 04:43 | NUR ---
PT SITTING IN RECLINER AT BEDSIDE, CONFUSED. PT STATES "I THINK I'M IN THE [place]. WHERE AM I" REORIENTED PT. PT NOW WANTING SOMETHING TO EAT AND "REAL WATER". SAFETY PRECAUTIONS IN PLACE WILL CONTINUE TO MONITOR
--- NOTE | 2018-07-14 05:44 | NUR ---
PT REFUSING TO HAVE BLOOD DRAWN FOR MORNING LABS AFTER MUTIPLE ATTEMPTS TO EDUCATE PT ON IMPORTANCE OF UP TO DATE LABS.
[2018-07-14 08:20] VITALS: BP 165/63
--- NOTE | 2018-07-14 08:20 | NUR ---
ASSESSMENT IS COMPLETED:; IV SITE IS FREE FROM REDNESS OR EDEMA. HR IS REG,PULSES ARE STRONG X4,ABD IS SOFT WITH ACTIVE BS. BREATH SOUNDS ARE CLEAR, BILATERALLY. O2 @ 3LITERS WITH NC. FISHER INTACT. DRAINING YELLOW URINE. TELE MONITOR IN PLACE, CONTINUE TO OSEBRVE AND MONITOR.
[2018-07-14 09:15] LABS: HEMATOCRIT 35.1 % (37.0-47.0); HEMOGLOBIN 11.1 g/dl (12.0-16.0); IMMATURE GRANULOCYTES 0.5 % (0.0-5.0); MEAN CELL VOLUME 90.2 fL CALC (80.0-100.0); MEAN CORPUSCULAR HGB 28.5 pG CALC (26.0-32.0); MEAN CORPUSCULAR HGB CONC 31.6 g/L CALC (32.0-36.0); NEUT# 8.17 thou/uL (2.00-7.15); RED BLOOD COUNT 3.89 mill/uL (4.20-5.60); RED CELL DISTRI WIDTH 12.8 % (11.5-15.5)
[2018-07-14 09:31] LABS: ALBUMIN 3.5 g/dL (3.2-5.0); BILIRUBIN, TOTAL 0.4 mg/dL (0.0-1.4); CREATININE 1.3 mg/dL (0.5-1.0); POTASSIUM 4.4 mmol/l (3.5-5.1); TOTAL PROTEIN 6.1 g/dL (6.3-8.2)
[2018-07-14 11:15] VITALS: BP 145/55
--- NOTE | 2018-07-14 12:15 | NUR ---
PT IS RELAXING IN BED WITH NO DISTRESS NOTED. IS WAITING TO GO HOME.
--- NOTE | 2018-07-14 15:12 | NUR ---
FISHER DISCONTINUED CATHETER INTACT NO DISTRESS NOTED;. PT TOLERATED WELL.
--- NOTE | 2018-07-14 16:15 | NUR ---
pt is sitting up on the side of the bed, iv site is free from redness or edema. continue to observe and monitor.
[2018-07-14 17:08] VITALS: BP 148/85
[2018-07-14] MEDS ORDERED: DOXYCYC MONO100 M3 PO (17:40)
--- NOTE | 2018-07-14 18:53 | NUR ---
IV SITE DISCONTINEUD CATHETER INTACT MEASURING 40 INCHES. TELE MONITOR WILL BE TAKEN OFF. DISCHARGE INSTRUCTIONS READY FOR PT SOON FAMILY ARRIVES. CONTINUE TO OSBERVE AND MONITOR.
--- NOTE | 2018-07-14 19:27 | NUR ---
CALLED FAMILY AND INFORMED THAT PT IS DISCHARGED AND NEEDS A RIDE HOME. ALL PAPERS AT THE DESK AND READY FOR HER. ALL IV AND TELE MONITOR IS OFF.
--- NOTE | 2018-07-14 19:59 | NUR ---
Patient resting in bed. No complaint of pain. Patient has already been discharged home. Awaiting daughter to come pick patient up from hospital. Will continue to monitor patient progress.
[2018-07-14 20:49] VITALS: BP 148/85
== END 2018-07-14 22:00 | disposition home health service (06) | DRG 193 ==
LOC: ED 09:34 → ED-I 11:46 → ED 12:04 → MS2 12:05 → ICU 07-09 17:19 → MS2 07-12 15:55
PROVIDERS: Emergency Medicine; Internal Medicine Nephrology; Nurse Practitioner Family; ADMIT Internal Medicine; ATTEND Internal Medicine
PROC: 5A09357 Assistance with Respiratory Ventilation, Less than 24 Consecutive Hours, Continuous Positive Airway Pressure (ICD-10-PCS; principal; 2018-07-09)
PROC: 02HV33Z Insertion of Infusion Device into Superior Vena Cava, Percutaneous Approach (ICD-10-PCS; 2018-07-12)
PROC: B518ZZA Fluoroscopy of Superior Vena Cava, Guidance (ICD-10-PCS; 2018-07-12)
DX: J15.9 Unspecified bacterial pneumonia (principal); J96.22 Acute and chronic respiratory failure with hypercapnia; J96.21 Acute and chronic respiratory failure with hypoxia; J43.9 Emphysema, unspecified; I16.0 Hypertensive urgency; I12.9 Hypertensive chronic kidney disease with stage 1 through stage 4 chronic kidney disease, or unspecified chronic kidney disease; E11.22 Type 2 diabetes mellitus with diabetic chronic kidney disease; N18.3 Chronic kidney disease, stage 3 (moderate); E03.9 Hypothyroidism, unspecified; D63.1 Anemia in chronic kidney disease; G47.33 Obstructive sleep apnea (adult) (pediatric); E11.610 Type 2 diabetes mellitus with diabetic neuropathic arthropathy; Z87.891 Personal history of nicotine dependence; Z79.4 Long term (current) use of insulin
CPT/HCPCS: G0378; J1650

== ENCOUNTER 2018-09-19 05:53 | Inpatient (IN) | payer MEDICARE, BC ==
[~2018-09-19] VITALS: Ht 162.6 cm; Wt 86.6 kg
[~2018-09-19 05:53] MED LIST changes: +DOXYCYC MONO100 M3 PO; +GABAPENTIN100 MG PO; +LEVOTHYROXIN125 MCG PO; +LOSARTAN POTASS50 MG PO; +MEVACOR10 MG PO; +TRESIBA FL100 UNIT/M SC; +VISTARIL 50MG C50 MG PO
[2018-09-19 06:16] LABS: HEMATOCRIT 40.5 % (37.0-47.0); HEMOGLOBIN 12.9 g/dl (12.0-16.0); IMMATURE GRANULOCYTES 0.5 % (0.0-5.0); MEAN CELL VOLUME 87.3 fL CALC (80.0-100.0); MEAN CORPUSCULAR HGB 27.8 pG CALC (26.0-32.0); MEAN CORPUSCULAR HGB CONC 31.9 g/L CALC (32.0-36.0); NEUT# 8.49 thou/uL (2.00-7.15); RED BLOOD COUNT 4.64 mill/uL (4.20-5.60); RED CELL DISTRI WIDTH 13.1 % (11.5-15.5)
[2018-09-19 06:30] LABS: BILIRUBIN, TOTAL 0.3 mg/dL (0.0-1.4); CREATININE 1.1 mg/dL (0.5-1.0); POTASSIUM 4.3 mmol/l (3.5-5.1)
[2018-09-19 06:34] LABS: ALBUMIN 4.4 g/dL (3.2-5.0); TOTAL PROTEIN 7.6 g/dL (6.3-8.2)
[2018-09-19 09:48] VITALS: BP 170/77
[2018-09-19 11:23] VITALS: BP 196/86
[2018-09-19 16:00] VITALS: BP 165/89
[2018-09-19 19:40] VITALS: BP 169/79
[2018-09-19 22:54] LABS: URINE BILIRUBIN - DIPSTICK NEGATIVE (NEGATIVE); URINE BLOOD DIPSTICK NEGATIVE (NEGATIVE); URINE COLOR YELLOW; URINE GLUCOSE - DIPSTICK >=1000 mg/dL (NEGATIVE); URINE KETONE NEGATIVE (NEGATIVE); URINE LEUK ESTERASE NEGATIVE (NEGATIVE); URINE NITRITE - DIPSTICK NEGATIVE (Negative); URINE PROTEIN - DIPSTICK TRACE mg/dL (NEG-TRACE); URINE SPECIFIC GRAVITY 1.015; URINE UROBILINOGEN - DIPSTICK 0.2 E.U./dL (0.2)
[2018-09-20] VITALS (8 sets, daily range): BP systolic 147–190; BP diastolic 72–95
[2018-09-20 05:14] LABS: HEMATOCRIT 37.4 % (37.0-47.0); HEMOGLOBIN 12.1 g/dl (12.0-16.0); IMMATURE GRANULOCYTES 0.5 % (0.0-5.0); MEAN CELL VOLUME 84.8 fL CALC (80.0-100.0); MEAN CORPUSCULAR HGB 27.4 pG CALC (26.0-32.0); MEAN CORPUSCULAR HGB CONC 32.4 g/L CALC (32.0-36.0); NEUT# 9.33 thou/uL (2.00-7.15); RED BLOOD COUNT 4.41 mill/uL (4.20-5.60); RED CELL DISTRI WIDTH 12.8 % (11.5-15.5)
[2018-09-20 05:46] LABS: ALBUMIN 4.3 g/dL (3.2-5.0); BILIRUBIN, TOTAL 0.3 mg/dL (0.0-1.4); CREATININE 1.1 mg/dL (0.5-1.0); MAGNESIUM 1.9 mg/dL (1.6-2.3); POTASSIUM 4.7 mmol/l (3.5-5.1)
[2018-09-20] MEDS ORDERED: SYNTHROID200 MCG PO (05:54)
[2018-09-20] MEDS ORDERED: PROTONIX40 M2 PO (05:54)
[2018-09-20] MEDS ORDERED: GABAPENTIN300 M2 (06:21)
[2018-09-20] MEDS ORDERED: COREG12.5 MG PO (06:27)
[2018-09-20] MEDS ORDERED: MEVACOR10 MG PO (09:40)
[2018-09-20] MEDS ORDERED: HYDROXYZ HCL25 MG PO (09:41)
[2018-09-20] MEDS ORDERED: GLIPIZIDE5 MG PO (09:41)
[2018-09-20] MEDS ORDERED: METFORMIN500 M2 PO (09:42)
[2018-09-20] MEDS ORDERED: LOSARTAN POTASS50 MG PO (09:43)
[2018-09-20] MEDS ORDERED: TYLENOL 500MG TAB PO (10:03)
[2018-09-20] MEDS ORDERED: TRAVATAN Z0.004 % OU (10:05)
[2018-09-20] MEDS ORDERED: TRESIBA FL100 UNIT/M SC (10:06)
[2018-09-20] MEDS ORDERED: FUROSEMIDE20 MG PO (10:06)
[2018-09-20] MEDS ORDERED: CETIRIZINE10 MG PO (10:07)
[2018-09-20] MEDS ORDERED: NOVOLIN R100 UNIT/M SC (10:09)
[2018-09-21 00:55] VITALS: BP 158/82
[2018-09-21 06:25] VITALS: BP 177/89
[2018-09-21 07:14] VITALS: BP 154/85
[2018-09-21 10:34] VITALS: BP 172/81
[2018-09-21 14:50] VITALS: BP 157/81
== END 2018-09-21 19:45 | disposition left against medical advice (07) | DRG 193 ==
LOC: ED 05:53 → ED-I 06:39 → ED 06:52 → MS2 06:53
PROVIDERS: Emergency Medicine; ADMIT Internal Medicine Nephrology; ATTEND Internal Medicine Nephrology
DX: J18.9 Pneumonia, unspecified organism (principal); J96.02 Acute respiratory failure with hypercapnia; J96.01 Acute respiratory failure with hypoxia; J43.9 Emphysema, unspecified; E11.22 Type 2 diabetes mellitus with diabetic chronic kidney disease; I12.9 Hypertensive chronic kidney disease with stage 1 through stage 4 chronic kidney disease, or unspecified chronic kidney disease; N18.3 Chronic kidney disease, stage 3 (moderate); E11.21 Type 2 diabetes mellitus with diabetic nephropathy; E78.5 Hyperlipidemia, unspecified; E03.9 Hypothyroidism, unspecified; K21.9 Gastro-esophageal reflux disease without esophagitis; F03.90 Unspecified dementia, unspecified severity, without behavioral disturbance, psychotic disturbance, mood disturbance, and anxiety; E66.9 Obesity, unspecified; H91.90 Unspecified hearing loss, unspecified ear; M19.90 Unspecified osteoarthritis, unspecified site; F17.210 Nicotine dependence, cigarettes, uncomplicated; Z79.4 Long term (current) use of insulin; Z87.01 Personal history of pneumonia (recurrent)
CPT/HCPCS: G0378; J1650

== ENCOUNTER 2018-10-22 05:53 | Observation (INO) | payer MEDICARE, BC ==
[~2018-10-22] VITALS: Ht 162.6 cm; Wt 92.2 kg
[~2018-10-22 05:53] MED LIST changes: +CETIRIZINE10 MG PO; +COREG12.5 MG PO; +FUROSEMIDE20 MG PO; +GABAPENTIN300 M2; +GLIPIZIDE5 MG PO; +HYDROXYZ HCL25 MG PO; +METFORMIN500 M2 PO; +NOVOLIN R100 UNIT/M SC; +PROTONIX40 M2 PO; +SYNTHROID200 MCG PO; +TRAVATAN Z0.004 % OU; +TYLENOL 500MG TAB PO
--- NOTE | 2018-10-22 05:53 | NUR ---
ASSISTED FROM CAR TO ROOM VIA W/C. C/O SEVERE SOB STARTING THIS MORNING
--- NOTE | 2018-10-22 06:10 | NUR ---
BREATHING TREATMENT GIVEN BACK TO BACK. BREATHING TECH. FOR GOOD DEPOSITION TO THE LUNGS.
[2018-10-22 06:17] LABS: HEMATOCRIT 40.9 % (37.0-47.0); HEMOGLOBIN 12.7 g/dl (12.0-16.0); IMMATURE GRANULOCYTES 0.9 % (0.0-5.0); MEAN CELL VOLUME 88.1 fL CALC (80.0-100.0); MEAN CORPUSCULAR HGB 27.4 pG CALC (26.0-32.0); MEAN CORPUSCULAR HGB CONC 31.1 g/L CALC (32.0-36.0); NEUT# 3.34 thou/uL (2.00-7.15); RED BLOOD COUNT 4.64 mill/uL (4.20-5.60); RED CELL DISTRI WIDTH 14.5 % (11.5-15.5)
[2018-10-22 06:29] LABS: ALBUMIN 4.5 g/dL (3.2-5.0); BILIRUBIN, TOTAL 0.3 mg/dL (0.0-1.4); CREATININE 1.2 mg/dL (0.5-1.0); POTASSIUM 4.1 mmol/l (3.5-5.1)
[2018-10-22 06:30] LABS: D-DIMER 0.6 mg/L (0.19-0.60)
--- NOTE | 2018-10-22 06:38 | NUR ---
PT CALMER. DAUGHTER AT BEDSIDE. FEELS BETTER ALREADY. REPORT TO KHRIS BRAUN
[2018-10-22] MEDS ORDERED: DIOVAN160 MG PO (07:10)
[2018-10-22] MEDS ORDERED: PROAIR HFA108 MCG/AC IN (07:12)
[2018-10-22] MEDS ORDERED: GLIPIZIDE5 MG PO (07:13)
--- NOTE | 2018-10-22 07:16 | NUR ---
PT WITH MED RECONCILIATION COMPLETED, NO COMPLAINTS SHORTNESS OF BREATH.
--- NOTE | 2018-10-22 08:41 | NUR ---
PT ARRIVED TO FLOOR @0840 VIA STRETCHER IN STABLE CONDITION ACCOMPANIED BY KHRIS BRAUN; PT AMBULATED WITH SLOW STEADY GAIT FROM STRETCHER TO BED; VITALS OBTAINED, STABLE; 02@2L NC; PT ORIENT TO ROOM AND CALL DE [facility] SYSTEM; SAFETY PRECAUTION REINFORCE;
[2018-10-22 08:42] VITALS: BP 189/90
--- NOTE | 2018-10-22 08:53 | NUR ---
PT TAKEN TO ROOM 68 WITHOUT INCIDENT, REPORT WAS TO [facility].
--- NOTE | 2018-10-22 09:22 | NUR ---
PT SITTING UP ON BSC, [employer] STITCHER GIVING PT A BATH;
--- NOTE | 2018-10-22 11:58 | NUR ---
PT SITTING UP IN RECLINER EATING SUPPER; RESP EVEN AND UNLABORED ON 02@2L NC; CALL DE LEON IN REACH; SAFETY PRECAUTION REINFORCE; WILL CONTINUE TO MONITOR
[2018-10-22 16:02] VITALS: BP 138/82
--- NOTE | 2018-10-22 17:34 | NUR ---
ASSISTED PT TO BS, VOIDED CLEAR, VICTORINA URINE; NOW SITTING UP IN RECLINER; MEDICATED FOR HEADACHE 10/27; CALL DE LEON IN REACH;.
[2018-10-22 19:12] VITALS: BP 159/62
--- NOTE | 2018-10-22 19:23 | NUR ---
PATIENT RESTING IN BED POSITIONED ON SIDE WITH O2 VIA NASAL CANNULA IN PLACE. EYES CLOSED AND APPEARS SLEEPING. PATIENT WITH NOISEY BREATHING AND SLIGHTLY LABORED. CALL LIGHT IN REACH. WILL CONT TO MONITOR.
[2018-10-23] VITALS (7 sets, daily range): BP systolic 132–184; BP diastolic 66–110
--- NOTE | 2018-10-23 00:21 | NUR ---
PATIENT RESTING IN BED WITH HOB ELEVATED AND RECIEVED NEB TREATMENT. PATIENT IS AWAKE ALERT AND ORIENTEDX3. ACCU-CHECK IS 298-PATIENT COVERED WITH NOVALOG SLIDING SCALE PROTOCOL OF NOVALOG 3UNITS. PATIENT ALSO RECIEVED LEVEMIR 30UNITS SQ SCHEDULED. SALINE LOCK INTACT TO RIGHT FOREARM AND FLUSHED PER PROTOCOL WITH SALINE FLUSH. SAFETY PRECAUTIONS REINFORCED. CALL LIGHT IN REACH. WILL CONT TO MONITOR.
--- NOTE | 2018-10-23 00:24 | NUR ---
PATIENT RESTING IN BED WITH O2 VIA NASAL CANNULA IN PLACE-APPEARS SLEEPING WITH EYES CLOSED. CALL LIGHT IN REACH. WILL CONT TO MONITOR.
--- NOTE | 2018-10-23 05:41 | NUR ---
PATIENT RESTING IN BED WITH O2 VIA NASAL CANNULA IN PLACE. PATIENT C/O HEADACHE AND MEDICATED WITH TYLENOL 650MG PO FOR HEADACHE. CALL LIGHT IN REACH. WILL CONT TO ISAIAS.,
[2018-10-23 05:42] LABS: MEAN CORPUSCULAR HGB 27.4 pG CALC (26.0-32.0); MEAN CORPUSCULAR HGB CONC 31.5 g/L CALC (32.0-36.0); RED BLOOD COUNT 4.01 mill/uL (4.20-5.60); RED CELL DISTRI WIDTH 14.2 % (11.5-15.5)
[2018-10-23 05:44] LABS: HEMATOCRIT 34.9 % (37.0-47.0)
[2018-10-23 06:16] LABS: CREATININE 1.6 mg/dL (0.5-1.0); POTASSIUM 4.9 mmol/l (3.5-5.1)
--- NOTE | 2018-10-23 07:59 | NUR ---
PT A/O X3. SPEECH IS CLEAR. RESP EVEN AND UNLABORED. LUNG SOUNDS CLEAR/DIMINISHED. O2 @2L ON PT. BOWEL SOUNDS ACTIVE X4. STRONG RADIAL, WEAK PEDAL PULSES. #22 RFA NS @80. SITE APPEARS HEALTHY. SKIN INTACT. PT DENIES ANY PAIN OR NEEDS. POC DISCUSSED. SAFETY PRECAUTIONS IN PLACE. CALL LIGHT IN REACH. WILL CONTINUE TO MONITOR.
--- NOTE | 2018-10-23 12:05 | NUR ---
PT RESTING. NO C/O PAIN OR NEEDS. IV FLUIDS INFUSING. CALL LIGHT IN REACH. WILL CONTINUE TO MONITOR.
--- NOTE | 2018-10-23 15:49 | NUR ---
PT SITTING IN BEDSIDE CHAIR. NO C/O PAIN OR NEEDS. O2@1L ON PT; PT C/O SLIGHT SOB. DENIES ANY FURTHER NEEDS. CALL LIGHT IN REACH. WILL CONTINUE TO MONITOR.
--- NOTE | 2018-10-23 18:01 | NUR ---
BP 182/110, PULSE 88. PT ASYMPTOMATIC; ON TELEPHONE. MD NOTIFIED. NEW ORDERS AT THIS TIME. WILL CONTINUE TO MONITOR.
--- NOTE | 2018-10-23 19:00 | NUR ---
RECEIVED REPORT FROM NURSE PETERSON, PATIENT SITTING IN CHAIR REMAINS ON O2 @2LPM VIA NC, WITH SHALLOW UNLABORED BREATHING AT THIS TIME, CALL LIGHT AT REACH.
--- NOTE | 2018-10-23 20:00 | NUR ---
PATIENT RESTING IN BED, WATCHING TV, REMAINS ON O2 @2LPM VIA NC WITH SHALLOW UNLABORED BREATHING WITH SALINE LOCK ON RFA PATENT FLUSHES WELL, CALL LIGHT AT REACH.
--- NOTE | 2018-10-24 02:13 | NUR ---
PATIANT APPEARS TO BE SLEEPING WITH EYES CLOSED NO DISCOMFORTS NOTED AT THIS TIME, CALL LIGHT AT REACH.
[2018-10-24 04:05] VITALS: BP 140/63
--- NOTE | 2018-10-24 04:23 | NUR ---
PATIENT APPEARS TO BE SLEEPING WITH EYES CLOSED, REMAINS ON O2 @2LPM VIA NC WITH SHALLOW, UNLABORED BREATHING CALL LIGHT AT REACH.
--- NOTE | 2018-10-24 07:22 | NUR ---
PT REPORT RECIEVED FROM KHRIS BARKER. PT SLEEPING. NO S/S OF DISTRESS. CALL LIGHT IN REACH. WILL CONTINUE TO MONITOR.
[2018-10-24 08:00] LABS: HEMATOCRIT 38.3 % (37.0-47.0); HEMOGLOBIN 12.1 g/dl (12.0-16.0); MEAN CELL VOLUME 86.5 fL CALC (80.0-100.0); MEAN CORPUSCULAR HGB 27.3 pG CALC (26.0-32.0); MEAN CORPUSCULAR HGB CONC 31.6 g/L CALC (32.0-36.0); RED BLOOD COUNT 4.43 mill/uL (4.20-5.60); RED CELL DISTRI WIDTH 14.5 % (11.5-15.5)
[2018-10-24 08:06] VITALS: BP 162/100
--- NOTE | 2018-10-24 08:06 | NUR ---
PT A/O X3. SPEECH IS CLEAR. RESP EVEN AND UNLABORED. LUNG SOUNDS CLEAR/DIMINISHED. O2 @1L ON PT. BOWEL SOUNDS ACTIVE X4. STRONG RADIAL, WEAK PEDAL PULSES. #22 RFA SL. FLUSHED AND PATENT. SITE APPEARS HEALTHY. SKIN INTACT. PT C/O LT SIDE PAIN; 6 OUT OF 10 ON PAIN SCALE. MEDICATED W/ 50 MG TRAMADOL PO. REPOSITIONED FOR COMFORT. PT DENIES ANY FURTHER NEEDS. POC DISCUSSED. SAFETY PRECAUTIONS IN PLACE. CALL LIGHT IN REACH. WILL CONTINUE TO MONITOR.
[2018-10-24 08:18] LABS: CREATININE 1.3 mg/dL (0.5-1.0); POTASSIUM 4.8 mmol/l (3.5-5.1)
[2018-10-24] MEDS ORDERED: ZITHROMAX250 MG PO (09:13)
[2018-10-24] MEDS ORDERED: MEDDOSEPAK PO (09:13)
[2018-10-24 09:23] VITALS: BP 150/80
--- NOTE | 2018-10-24 11:30 | NUR ---
D/C INSTRUCTIONS DISCUSSED IN DETAIL W/ PT. PT STATES UNDERSTANDING. IV REMOVED. CATHETER INTACT. PT AWATING FAMILY MEMEBER TO RESPOND CALL REGARDING RIDE HOME. WILL CONTINUE TO MONITOR.
--- NOTE | 2018-10-24 12:09 | NUR ---
Discharge instructions given. Patient verbalizes understanding of same. Discharged in stable condition via Wheelchair to Home with family. All belongings sent with pt.
[2018-10-25] MEDS ORDERED: CARVEDILOL12.5 MG PO (10:17)
[2018-10-25] MEDS ORDERED: METFORMIN HCL500 M2 PO (10:21)
[2018-10-25] MEDS ORDERED: ACETAMIN500 M2 PO (10:23)
[2018-10-25] MEDS ORDERED: ALLERGY RELF10 M3 PO (10:24)
[2018-10-25] MEDS ORDERED: NOVOLIN R100 UNIT/M SC (10:27)
[2018-10-25] MEDS ORDERED: SYNTHROID200 MCG PO (11:45)
[2018-10-25] MEDS ORDERED: GABAPENTIN300 M2 PO (11:46)
[2018-10-25] MEDS ORDERED: PROTONIX40 M2 PO (11:46)
[2018-10-25] MEDS ORDERED: LOVASTATIN10 M1 PO (11:47)
[2018-10-25] MEDS ORDERED: LOSARTAN POTASS50 MG PO (11:47)
[2018-10-25] MEDS ORDERED: TYLENOL500 MG PO (11:48)
[2018-10-25] MEDS ORDERED: TRAVATAN Z0.004 % OU (11:49)
[2018-10-25] MEDS ORDERED: TRESIBA FL100 UNIT/M SC (11:49)
[2018-10-25] MEDS ORDERED: PROAIR HFA108 MCG/AC IN (11:50)
[2018-10-25] MEDS ORDERED: MEDDOSEPAK PO (11:51)
[2018-10-25] MEDS ORDERED: GLIPIZIDE5 M2 PO (11:51)
[2018-10-25] MEDS ORDERED: ZITHROMAX250 MG PO (11:52)
== END 2018-10-24 12:15 | disposition home health service (06) ==
LOC: ED 05:53 → MS2 07:01
PROVIDERS: Family Medicine; ADMIT Internal Medicine; ATTEND Internal Medicine
DX: J43.9 Emphysema, unspecified (principal); J96.22 Acute and chronic respiratory failure with hypercapnia; J96.21 Acute and chronic respiratory failure with hypoxia; E11.22 Type 2 diabetes mellitus with diabetic chronic kidney disease; I12.9 Hypertensive chronic kidney disease with stage 1 through stage 4 chronic kidney disease, or unspecified chronic kidney disease; N18.3 Chronic kidney disease, stage 3 (moderate); E89.0 Postprocedural hypothyroidism; F03.90 Unspecified dementia, unspecified severity, without behavioral disturbance, psychotic disturbance, mood disturbance, and anxiety; F22 Delusional disorders; F17.200 Nicotine dependence, unspecified, uncomplicated; Z79.4 Long term (current) use of insulin
CPT/HCPCS: J1756

== ENCOUNTER 2018-10-25 02:39 | Inpatient (IN) | payer MEDICARE, BC ==
[2018-10-25] VITALS (8 sets, daily range): BP systolic 151–199; BP diastolic 76–96
[~2018-10-25] VITALS: Ht 162.6 cm; Wt 92.8 kg
[~2018-10-25 02:39] MED LIST changes: +DIOVAN160 MG PO; +MEDDOSEPAK PO; +PROAIR HFA108 MCG/AC IN; +ZITHROMAX250 MG PO
--- NOTE | 2018-10-25 02:39 | NUR ---
TO ROOM 10 VIA STRETCHER BY EMS. ALERT. SOB
[2018-10-25 03:02] LABS: HEMATOCRIT 37.9 % (37.0-47.0); IMMATURE GRANULOCYTES 1.1 % (0.0-5.0); MEAN CELL VOLUME 87.3 fL CALC (80.0-100.0); MEAN CORPUSCULAR HGB 27.6 pG CALC (26.0-32.0); MEAN CORPUSCULAR HGB CONC 31.7 g/L CALC (32.0-36.0); NEUT# 13.29 thou/uL (2.00-7.15); RED BLOOD COUNT 4.34 mill/uL (4.20-5.60); RED CELL DISTRI WIDTH 14.6 % (11.5-15.5)
--- NOTE | 2018-10-25 03:18 | NUR ---
ATTEMPTED EKG SEVERAL TIMES BUT DO TO RESP STATUS...UNABLE TO OBTAIN A CLEAR PIC. FAMILY AT BEDSIDE NOW.
--- NOTE | 2018-10-25 03:20 | NUR ---
DR RAMY FRAZIER
[2018-10-25 03:22] LABS: ALBUMIN 4.3 g/dL (3.2-5.0); BILIRUBIN, TOTAL 0.3 mg/dL (0.0-1.4); CREATININE 1.1 mg/dL (0.5-1.0); POTASSIUM 4.5 mmol/l (3.5-5.1); TOTAL PROTEIN 7.8 g/dL (6.3-8.2)
--- NOTE | 2018-10-25 03:28 | NUR ---
RT AT BEDSIDE
--- NOTE | 2018-10-25 05:06 | NUR ---
PT GETTING MORE SOB. PT GIVEN ADDITIONAL DOSE OF LABETALOL 20 MG. O2 INCREASED TO 3 LPM NC. PT NOT ABLE TO VOID YET.
[2018-10-25 05:17] LABS: AMYLASE 82 u/l (30-110); LIPASE 97 u/l (23-300)
[2018-10-25 05:29] LABS: URINE BILIRUBIN - DIPSTICK NEGATIVE (NEGATIVE); URINE BLOOD DIPSTICK TRACE-INTACT (NEGATIVE); URINE COLOR YELLOW; URINE GLUCOSE - DIPSTICK 250 mg/dL (NEGATIVE); URINE KETONE NEGATIVE (NEGATIVE); URINE LEUK ESTERASE NEGATIVE (NEGATIVE); URINE NITRITE - DIPSTICK NEGATIVE (Negative); URINE PROTEIN - DIPSTICK 30 mg/dL (NEG-TRACE); URINE SPECIFIC GRAVITY 1.025; URINE UROBILINOGEN - DIPSTICK 0.2 E.U./dL (0.2)
--- NOTE | 2018-10-25 05:38 | NUR ---
PT UNABLE TO VERIFY MEDICATIONS.
--- NOTE | 2018-10-25 05:45 | NUR ---
REPORT TO ELMA ROSE/MED SURG
[2018-10-25 05:51] LABS: URINE AMORPH SEDIMENT FEW hpf (NONE-FEW); URINE BACTERIA FEW hpf; URINE RBC 0-2 RBC/hpf (0-5); URINE SQUAMOUS EPITHELIAL CELL RARE EPI/hpf (0-FEW); URINE WBC 0-2 WBC/hpf (0-5)
--- NOTE | 2018-10-25 05:52 | NUR ---
TO CT VIA STRETCHER
--- NOTE | 2018-10-25 06:22 | NUR ---
PT WENT TO CT. 2ND LINE STARTED PRIOR. PT TO CT VIA STRETCHER.....AFTER CT PT TAKEN DIRECTLY TO FLOOR VIA STRETCHER WITH O2.
--- NOTE | 2018-10-25 06:26 | NUR ---
PT ARRIVES TO FLOOR VIA STRETCHER WITH ER STAFF IN STABLE CONDITON. PT AMBULATES WITH MAX ASSIST x2. VITAL SIGNS OBTAINED. O2 @ 3L. PT ORIENTED TO ROOM AND CALL [facility] SYSTEM. WILL CONTINUE TO MONITOR.
--- NOTE | 2018-10-25 07:45 | NUR ---
PT AWAKE RESTING IN BED. PT IS ALERT AND ORIENTED TO PERSON AND PLACE, CONFUSED ON TIME. O2 N/C ON AT 2L. O2 SAT 100%. LUNGS REVEAL DIMINISHED BREATH SOUNDS. ABD SOFT WITH BOWEL SOUNDS PRESENT. NO LOWER EXT EDEMA NOTED. PEDAL PULSES PALPATED BILAT. HEPLOCK PATENT IN RT WRIST AND LEFT A.C. TELE SR. PT DENIES ANY DISCOMFORT AT THIS TIME. FREQUENT ROUNDS MADE. ORIENTED TO ROOM AND CALL DE LEON. CALL DE LEON WITHIN REACH.
--- NOTE | 2018-10-25 09:00 | NUR ---
DR ZARCO INTO SEE PT . INFORMED OF VSS. PHARMACY TO SPEAK WITH PT REGARDING HOME MEDS.
[2018-10-25] MEDS ORDERED: CARVEDILOL12.5 MG PO (10:17)
[2018-10-25] MEDS ORDERED: METFORMIN HCL500 M2 PO (10:21)
[2018-10-25] MEDS ORDERED: ACETAMIN500 M2 PO (10:23)
[2018-10-25] MEDS ORDERED: ALLERGY RELF10 M3 PO (10:24)
[2018-10-25] MEDS ORDERED: NOVOLIN R100 UNIT/M SC (10:27)
--- NOTE | 2018-10-25 11:18 | NUR ---
CALL RECEIVED FROM PTS GRANDDAUGHTER REGARDING PTS CONDITION. FAMILY WOULD LIKE PT TO BE DISCHARGED WITH HOME O2 THIS TIME. WILL INFORM Zuri
[2018-10-25] MEDS ORDERED: SYNTHROID200 MCG PO (11:45)
[2018-10-25] MEDS ORDERED: GABAPENTIN300 M2 PO (11:46)
[2018-10-25] MEDS ORDERED: PROTONIX40 M2 PO (11:46)
[2018-10-25] MEDS ORDERED: LOSARTAN POTASS50 MG PO (11:47)
[2018-10-25] MEDS ORDERED: LOVASTATIN10 M1 PO (11:47)
[2018-10-25] MEDS ORDERED: TYLENOL500 MG PO (11:48)
[2018-10-25] MEDS ORDERED: TRESIBA FL100 UNIT/M SC (11:49)
[2018-10-25] MEDS ORDERED: TRAVATAN Z0.004 % OU (11:49)
[2018-10-25] MEDS ORDERED: PROAIR HFA108 MCG/AC IN (11:50)
[2018-10-25] MEDS ORDERED: GLIPIZIDE5 M2 PO (11:51)
[2018-10-25] MEDS ORDERED: MEDDOSEPAK PO (11:51)
[2018-10-25] MEDS ORDERED: ZITHROMAX250 MG PO (11:52)
--- NOTE | 2018-10-25 12:20 | NUR ---
PT AWAKE RESTING IN BED EATING HER LUNCH. RESP EVEN AND UNLABORED. DR ZARCO AWARE OF VS. O2 N/C ON AT 2L. NO DISTRESS NOTED. PT DENIES ANY DISCOMFORT. TELE SR. DR ZARCO IS ORDERING HER HOME MEDS. FREQUENT ROUNDS MADE. CALL DE LEON WITHIN REACH.
--- NOTE | 2018-10-25 14:40 | NUR ---
PT WOKE. MEDICATED WITH APRESOLINE 10MG IV FOR B/P 179/96, HR 75. O2 SAT 100% ON 2L N/C. PT OFFERS NO COMPLAINTS. TELE INTACT. HEPLOCK PATENT IN LEFT A.C. AND RT FOREARM. WILL CONTINUE TO CLOSELY MONITOR. FREQUENT ROUNDS MADE. CALL DE LEON WITHIN REACH.
--- NOTE | 2018-10-25 16:11 | NUR ---
PT RESTING IN BED WATCHING T.V. O2 N/C ON AT 2L. HEPLOCK PATENT IN LEFT A.C. AND RT FOREARM. FISHER IS PATENT DRAINING VICTORINA URINE. TELE INTACT SR 70'S. PT DENIES ANY DISCOMFORT. FREQUENT ROUNDS MADE. CALL DE LEON WITHIN REACH.
--- NOTE | 2018-10-25 19:05 | NUR ---
REPORT RECIEVED FROM KHRIS IBARRA. PT RESTING IN BED. NO S/S OF DISTRESS AT THIS TIME. WILL CONTINUE TO MONITOR.
--- NOTE | 2018-10-25 20:15 | NUR ---
PT RESTING IN BED. ALERT AND ORIENTED. RESPIRATIONS SHALLOW ON O2 @ 2L, LUNGS SOUND CLEAR/DIMINISHED. PEDAL PULSES WEAK. PT DENIES ANY PAIN OR DISCOMFORT. CALL DE LEON WITHIN REACH. WILL CONTINUE TO MONITOR.
[2018-10-26] VITALS (10 sets, daily range): BP systolic 138–182; BP diastolic 68–91
--- NOTE | 2018-10-26 01:45 | NUR ---
PT RESTING IN BED. RESPIRATIONS EVEN AND UNLABORED ON O2 @ 2L VIA NC. TELE IN PLACE. CALL DE LEON WITHIN REACH. WILL CONTINUE TO MONITOR.
--- NOTE | 2018-10-26 04:50 | NUR ---
PT ALERT AND ORIENTED, TURNED PT PER REQUEST. RESPIRATIONS SHALLOW ON O2 @ 2L VIA NC. NO S/S OF DISTRESS AT THIS TIME. WILL CONTINUE TO MONITOR.
--- NOTE | 2018-10-26 08:10 | NUR ---
PT AWAKE SITTING AT EDGE OF BED. RESP EVEN AND UNLABORED. PT IS VERY FORGETFUL. ALERT TO PERSON AND PLACE, CONFUSED ON DATE AND TIME. O2 N/C ON AT 2L. O2 ST 99%. LUNGS CLEAR IN MID TO UPPER LOBES WITH DIMINISHED BREATH SOUNDS IN BILAT BASES. ABD SOFT WITH BOWEL SOUNDS PRESENT. PT DOES HAVE +1 BILAT LOWER EXT EDEMA NOTED. PEDAL PULSES PALPATED BILAT. HEPLOCK PATENT IN RT FOREARM AND LEFT A.C. AND FLUSHED WITHOUT ANY DIFFICULTY. TELE SR HR 70'S. FISHER IS PATENT DRAINING CLEAR YELLOW URINE. FREQUENT ROUNDS MADE. CALL DE LEON WITHIN REACH.
--- NOTE | 2018-10-26 10:40 | NUR ---
PT AWAKE IN ROOM TALKING ON THE PHONE. OFFERS NO COMPLAINTS. RESP EVEN AND UNLABORED. FREQUENT ROUNDS MADE. CALL DE LEON WITHIN REACH.
--- NOTE | 2018-10-26 12:22 | NUR ---
PT EATING LUNCH. RESP EVEN AND UNLABORED. O2 N/C ON AT 2L. NO DISTRESS NOTED. OFFERS NO COMPLAINTS. TELE SR. FREQUENT ROUNDS MADE. CALL DE LEON WITHIN REACH.
--- NOTE | 2018-10-26 13:08 | NUR ---
DR ZARCO IN TO SPEAK WITH PT REGARDING PLAN OF CARE.
--- NOTE | 2018-10-26 16:01 | NUR ---
PT MEDICATED WITH TYLENOL 650MG P.O FOR HEADACHE. B/P 182/86, HR 70'S. MEDICATED WITH APRESOLINE 10MG IV FOR ELEVATED B/P. TELE INTACT. WILL CONTINUE TO CLOSELY MONITOR. O2 SAT 99% ON 2L N/C. THIS SALVAGE WINDER REMAINS WITH PT.
--- NOTE | 2018-10-26 17:40 | NUR ---
PT IS CONFUSED. PT IS CALLING ALL HER FAMILY MEMBERS TELLING THEM SHE HAS BEEN DISCHARGED HOME AND TO COME PICK HER UP. S/W PTS SISTER PRETTY AND INFORMED PT HAS NOT BEEN DISCHARGED. PT ASSESSMENT UNCHANGED. RESP EVEN AND UNLABORED. PT STATES IM GOING TO GET SOMEONE TO COME TAKE ME HOME. PT AWARE SHE WILL NEED HOME O2 BUT CONTINUES TO INSIST SHE IS GOING HOME. DENIES ANY DISCOMFORT. FREQUENT ROUNDS MADE. CALL DE LEON WITHIN REACH.
--- NOTE | 2018-10-26 19:09 | NUR ---
REPORT RECEIVED FROM KHRIS IBARRA. PT RESTING IN RECLINER AT BEDSIDE. NO S/S OF DISTRESS AT THIS TIME. WILL CONTINUE TO MONITOR.
--- NOTE | 2018-10-26 20:50 | NUR ---
ACCUCHECK READING CRITICAL HIGH, LAB GLUCOSE 354, PT MEDICATED PER SIDING SCALE PROTOCAL. WILL CONTINUE TO MONITOR.
--- NOTE | 2018-10-26 21:52 | NUR ---
PT RESTING IN RECLINER AT BEDSIDE, ALERT AND ORIENTED. RESPIRATIONS SHALLOW ON O2 @ 2L VIA NC. LUNGS SOUND CLEAR DIMINISHED. TELE IN PLACE. FISHER DRAINING TO GRAVITY. ASSTED PT TO BED FROM CHAIR. PT HAD A SCANT AMOUT OF STOOL ON VERO PAD CLEANED PT UP. PT REPORTS HAVING A HEADACHE WITH PAIN OR A 9/10, PT TO BE MEDICATED PER EMAR ORDERS. CALL DE LEON WITHIN REACH WILL CONTINUE TO MONITOR.
[2018-10-27] VITALS (8 sets, daily range): BP systolic 125–176; BP diastolic 71–88
--- NOTE | 2018-10-27 00:53 | NUR ---
PT RESTING IN BED. RESPIRATIONS SHALLOW ON O2 @ 2L VIA NC. NO S/S OF DISTRESS AT THIS TIME. SAFETY PRECAUTIONS IN PLACE. WILL CONTINUE TO MONITOR.
--- NOTE | 2018-10-27 04:17 | NUR ---
PT RESTING IN BED. RESPIRATIONS SHALLOW ON O2 @ 2L VIA NC. NO S/S OF DISTRESS AT THIS TIME . CALL DE LEON WITHIN REACH. WILL CONTINUE TO MONITOR.
[2018-10-27 06:03] LABS: HEMATOCRIT 36.4 % (37.0-47.0); HEMOGLOBIN 11.3 g/dl (12.0-16.0); MEAN CELL VOLUME 88.8 fL CALC (80.0-100.0); MEAN CORPUSCULAR HGB 27.6 pG CALC (26.0-32.0); RED BLOOD COUNT 4.1 mill/uL (4.20-5.60); RED CELL DISTRI WIDTH 14.6 % (11.5-15.5)
[2018-10-27 06:22] LABS: CREATININE 1.2 mg/dL (0.5-1.0); POTASSIUM 4.9 mmol/l (3.5-5.1)
--- NOTE | 2018-10-27 08:10 | NUR ---
PT AWAKE RESTING IN BED WATCHING T.V. PT ATE 100% OF HER BREAKFAST. PT IS ALERT AND ORIENTED BUT CONFUSED ON DATE, TIME AND INSISTING SHE IS GOING HOME TODAY. PT CALLING ALL OF HER FAMILY AND TELLING THEM THE DR HAS BEEN IN TO SEE HER AND SHE HAS BEEN DISCHARGED. PT IS EASILY AGITATED. INFORMED PT SHE HAS NOT BEEN DISCHARGED AND SHE STATES I KNOW IM JUST TELLING EVERYONE THAT SO SOMEONE WILL COME PICK ME UP. PT GIVING THIS SENIOR JAVA PROGRAMMER ANALYST A HARD TIME TAKING MORNING MEDS. SHE STATES IM NOT TAKING THEM UNLESS IM DISCHARGED. PT STATES "I DONT LIKE WHITE PEOPLE". RESP EVEN AND UNLABORED. PT DOES GET SHORT OF BREATH WHEN TALKING ON THE PHONE AND WITH ACTIVITY. O2 N/C ON AT 2L. O2 SAT 100%. LUNGS REVEAL DIMINISHED BREATH SOUNDS BILAT. ABD SOFT WITH BOWEL SOUNDS PRESENT. PT DOES HAVE +1 BILAT LOWER EXT EDEMA NOTED. PEDAL PULSES PALPATED BILAT. HEPLOCK PATENT IN RT FOREARM AND LEFT A.C. FLUSHED WITHOUT ANY DIFFICULTY. FISHER IS PATENT DRAINING CLEAR YELLOW URINE. PT DENIES ANY DISCOMFORT. TELE SR. FREQUENT ROUNDS MADE. CALL DE LEON WITHIN REACH.
--- NOTE | 2018-10-27 10:00 | NUR ---
PT RESTING IN BED. RESP EVEN AND UNLABORED. OFFERS NO COMPLAINTS. FREQUENT ROUNDS MADE. CALL DE LEON WITHIN REACH.
--- NOTE | 2018-10-27 12:04 | NUR ---
RESTING IN BED EATING LUNCH. OFFERS NO COMPLAINTS. FREQUENT ROUNDS MADE. CALL DE LEON WITHIN REACH.
--- NOTE | 2018-10-27 13:00 | NUR ---
PTS DAUGHTER SITTING IN RECLINER. PT VERY AGITATED AND BEING NASTY TO STAFF AND HER DAUGHTER. PT IS CONFUSED. PT INSISTING SHE IS GOING HOME. PT ATTEMPTING TO PULL OUT FISHER CATH. DAUGHTER IS AWARE PT IS NOT DISCHARGED AND PLAN IS TO ESTABLISH HOME O2. PTS DAUGHTER STATES SHE CAN NOT GO HOME AND S/W DAUGHTER REGARDING PLAN OF CARE. PER DAUGHTER FAMILY IS DISCUSSING AMONG THEMSELVES REGARDING PLACEMENT. FREQUENT REDIRECTION IS NEEDED. FISHER IS PATENT. HEPLOCK PATENT. TELE INTACT. PT INFORMED HER STATISTICIAN APPLIED IS ON HIS WAY TO VISIT. REPOSITIONED FOR COMFORT. DAUGHTER AT BEDSIDE TRYING TO CALM PT DOWN. FREQUENT ROUNDS MADE. CALL DE LEON WITHIN REACH.
--- NOTE | 2018-10-27 13:20 | NUR ---
SECURITY SYSTEMS INSTALLER AT BEDSIDE VISITING WITH PT AND PTS DAUGHTER. PT CALM AND COOPERATIVE AT THIS TIME. FREQUENT ROUNDS MADE. CALL DE LEON WITHIN REACH.
--- NOTE | 2018-10-27 14:20 | NUR ---
DR NATARAJAN IN TO SPEAK WITH PT, PTS DAUGHTER AND STUNNER. REGARDING NOT BEING DISCHARGED UNTIL MONDAY WHEN HOME O2 CAN BE SET UP. FAMILY DOES AGREE WITH DR NATARAJAN THAT PT NEEDS TO STAY IN THE HOSPITAL TILL MONDAY. PT REMAINS CONFUSED AND INSISTING ON GOING HOME TODAY EVEN THOUGH SHE DOES NOT HAVE HOME O2 AND SHE LIVES ALONE. PT AGITATED AND STATING SHE WILL LEAVE ON HER OWN IF SOMEONE DOES NOT TAKE HER. DR NATARAJAN IN ROOM WITH PT AND HER DAUGHTER FOR SOME TIME THOROUGHLY EXPLAINING TO PT WHY IT IS IN HER BEST INTEREST TO STAY. PT CONTINUES TO INSIST SHE IS LEAVING. STUNNER SPOKE WITH PT TRYING TO EXPLAIN TO PT THE IMPORTANCE OF LISTENING TO DR NATARAJAN AND STAYING IN THE HOSPITAL. PT NOT WILLING TO LISTEN TO ANYONE REGARDING WHATS IN HER BEST INTEREST. PT ATTEMPTING TO LEAVE AGAINT WHAT AND FAMILY ARE TELLING HER. PT STATES "IM LEAVING CAUSE IM GROWN". PT IN HALLWAY . DR NATARAJAN WITH PT AND A 1:1 SITTER ORDERED FOR PTS SAFETY DUE TO PT TRYING TO LEAVE. INSPECTOR PURCHASED PARTS MONCHO PINEDO CALLED AND INFORMED OF SITUATION AND THAT A SITTER IS ORDERED. PT ASSISTED BACK TO HER ROOM BUT INSISTING SHE IS LEAVING. NATALIA IS PATENT. TELE INTACT. KATYLOCK PATENT. FAMILY AND THIS SMALL ENGINE TECHNICIAN AT BEDSIDE. PTS DAUGHTER ASKED DR NATARAJAN FOR A SEDATIVE FOR PT. DR NATARAJAN STATES HE WILL ORDER A SEDATIVE PRN.
--- NOTE | 2018-10-27 14:30 | NUR ---
WINE FERMENTER MONCHO PINEDO CALLED TO PTS ROOM. INFORMED OF SITUATION AND IN PTS ROOM SPEAKING WITH PT AND PTS DAUGHTER.
--- NOTE | 2018-10-27 16:29 | NUR ---
FAMILY AND WAREHOUSE DISTRIBUTION MANAGER REMAIN AT PTS BEDSIDE. PT REMAINS CONFUSED BUT LESS AGITATED. NATALIA IS PATENT. TELE INTACT. STACY PATENT. FREQUENT ROUNDS MADE. CALL DE LEON WITHIN REACH.
--- NOTE | 2018-10-27 17:30 | NUR ---
DR RUSSO CALLED AND INFORMED ACCU 419. PER DR RUSSO GIVE PT HER SCHEDULED SLIDING SCALE COVERAGE OF NOVOLOG 6 UNITS S.Q. NO FURTHER ORDERS RECEIVED AT THIS TIME.
--- NOTE | 2018-10-27 17:39 | NUR ---
PT AWAKE RESTING IN BED SPEAKING TO HER SISTER AT BEDSIDE. B/P 176/75. MEDICATED WITH APRESOLINE 10MG IV AND GIVEN NOVOLOG 6 UNITS S.Q FOR ACCU OF 419. PT DENIES ANY DISCOMFORT. PT PLEASANT AT THIS TIME AND COOPERATIVE. SITTER WITH PT. PT DENIES ANY DISCOMFORT. TELE INTACT. NATALIA IS PATENT. STACY PATENT. CALL DE LEON WITHIN REACH.
--- NOTE | 2018-10-27 19:10 | NUR ---
REPORT RECEIVED FROM KHRIS IBARRA PT RESTING IN BED NO S/S OF DISTRESS SAFETY PRECAUTIONS IN PLACE. ONE TO ONE SITTER FOR PT SAFETY. WILL CONTINUE TO MONITOR.
--- NOTE | 2018-10-27 20:30 | NUR ---
PT RESTING IN BED ALERT AND ORIENTED. RESPIRATIONS SHALLOW ON O2 @ 2L VIA NC. LUNGS SOUND DIMINISHED. PEDAL PULSES WEAK. PT DENIES ANY NEEDS AT THIS TIME. ONE TO ONE SITTER FOR PT SAFETY. WILL CONTINUE TO MONITOR.
--- NOTE | 2018-10-28 00:05 | NUR ---
PT RESTING IN BED WITH EYES CLOSED. NO S/S OF DISTRESS. RESPIRATIONS SHALLOW ON O2 @ 2L VIA NC. SAFETY PRECAUTIONS IN PLACE. WILL CONTINUE TO MONITOR.
--- NOTE | 2018-10-28 02:30 | NUR ---
PT WOKE UP AND TRIED TO GET OUT OF BED. PT CONFUSED STATING SHE'S IN HER LIVING ROOM AND SHE NEEDS TO GO TO THE BATHROOM. PT ASSISTED TO BSC AND BACK INTO BED. SAFETY PRECAUTIONS IN PLACE. WILL CONTINUE TO MONITOR.
[2018-10-28 04:30] VITALS: BP 159/86
[2018-10-28 05:44] LABS: HEMATOCRIT 36.7 % (37.0-47.0); HEMOGLOBIN 11.4 g/dl (12.0-16.0); IMMATURE GRANULOCYTES 0.9 % (0.0-5.0); MEAN CELL VOLUME 88.4 fL CALC (80.0-100.0); MEAN CORPUSCULAR HGB 27.5 pG CALC (26.0-32.0); MEAN CORPUSCULAR HGB CONC 31.1 g/L CALC (32.0-36.0); NEUT# 9.38 thou/uL (2.00-7.15); RED BLOOD COUNT 4.15 mill/uL (4.20-5.60); RED CELL DISTRI WIDTH 14.4 % (11.5-15.5)
[2018-10-28 05:57] LABS: BILIRUBIN, TOTAL 0.3 mg/dL (0.0-1.4); CREATININE 1.3 mg/dL (0.5-1.0); MAGNESIUM 2.3 mg/dL (1.6-2.3)
[2018-10-28 06:04] LABS: ALBUMIN 3.4 g/dL (3.2-5.0); TOTAL PROTEIN 6.2 g/dL (6.3-8.2)
[2018-10-28 07:49] VITALS: BP 185/85
--- NOTE | 2018-10-28 07:55 | NUR ---
PT AWAKE RESTING IN BED EATING BREAKFAST. PT IS DROWSY. PT IS ALERT AND ORIENTED BUT CONFUSED ON DATE AND TIME. PT IS VERY FORGETFUL. O2 N/C ON AT 2L. LUNGS CLEAR IN MID TO LOWER LOBES WITH DIMINISHED BREATH SOUNDS IN BILAT BASES. ABD SOFT AND NONDISTENDED WITH BOWEL SOUNDS PRESENT. PT ASSISTED WITH HER BATH. PT HAS +1 NONPITTING BILAT LOWER EXT EDEMA NOTED. PEDAL PULSES PALPATED BILAT. HEPLOCK PATENT IN RT FOREARM AND FLUSHED WITHOUT ANY DIFFICULTY. TELE SR. PT DENIES ANY DISCOMFORT. PT IS PLEASANT AND COOPERATIVE AT THIS TIME. SITTER AT BEDSIDE FOR PTS SAFETY. FREQUENT ROUNDS MADE. FISHER IS PATENT DRAINING CLEAR YELLOW URINE. CALL DE LEON WITHIN REACH.
--- NOTE | 2018-10-28 09:37 | NUR ---
PT RESTING IN BED WITH EYES CLOSED. RESP EVEN AND UNLABORED. NO DISTRESS NOTED. SITTER AT BEDSIDE. CALL DE LEON WITHIN REACH.
[2018-10-28 10:11] VITALS: BP 138/70
--- NOTE | 2018-10-28 12:15 | NUR ---
PT RESTING IN BED. DR NATARAJAN IN TO SPEAK WITH PT. AWARE OF PTS ASSESSMENT. PER DR NATARAJAN CONTINUE SITTER FOR PTS SAFETY FOR TODAY. PT OFFERS NO COMPLAINTS. CALL DE LEON WITHIN REACH.
[2018-10-28 14:21] VITALS: BP 151/72
--- NOTE | 2018-10-28 14:30 | NUR ---
PT RESTING IN BED WITH EYES CLOSED. PT IS EASILY AROUSED. O2 N/C ON AT 1L. PT HAS BEEN PLEASANT AND COOPERATIVE. PT IS DROWSY. PTS DAUGHTER KAREN CALLED AND INFORMED OF PTS ASSESSMENT. SITTER REMAINS WITH PT FOR PTS SAFETY. TELE INTACT. FISHER IS DRAINING CLEAR YELLOW URINE. HEPLOCK PATENT. FREQUENT ROUNDS MADE. CALL DE LEON WITHIN REACH.
--- NOTE | 2018-10-28 17:00 | NUR ---
PT RESTING IN BED WITH EYES CLOSED. EASILY AROUSABLE. RESP EVEN AND UNLABORED. NO DISTRESS NOTED. HEPLOCK PATENT. TELE SR HR 70. SITTER AT BEDSIDE FOR PTS SAFETY. CALL DE LEON WITHIN REACH.
[2018-10-28 19:04] VITALS: BP 162/62
--- NOTE | 2018-10-28 19:04 | NUR ---
REPORT RECEIVED FROM KHRIS IBARRA. PT RESTING IN BED NO S/S OF DISTRESS, SAFETY PRECAUTIONS IN PLACE, ONE TO ONE SITTER AT BEDSIDE FOR PT SAFETY, WILL CONTINUE TO MONITOR.
--- NOTE | 2018-10-29 00:20 | NUR ---
PT RESTING IN BED WITH EYES CLOSED. RESPIRATIONS SHALLOW ON O2 VIA NC. NO S/S OF DISTRESS AT THIS TIME. ONE TO ONE SITTER IN PLACE FOR PT SAFETY. WILL CONTINUE TO MONITOR.
[2018-10-29 00:33] VITALS: BP 124/63
--- NOTE | 2018-10-29 01:53 | NUR ---
PT RESTING IN BED, WITH EYES CLOSED. PT EASILY AROUSED. RESPIRATIONS EVEN AND UNLABORED ON O2 VIA NC, LUNGS SOUND DIMINISHED. TELE IN PLACE. ONE TO ONE SITTER AT BEDSIDE FOR PT SAFETY. WILL CONTINUE TO MONITOR.
[2018-10-29 03:53] VITALS: BP 146/59
--- NOTE | 2018-10-29 04:48 | NUR ---
PT RESTING IN BED. RESPIRATIONS EVEN AND UNLABORED ON O2 @ 2L VIA NC. NO S/S OF DISTRESS AT THIS TIME. FISHER DRAINING TO GRAVITY. SAFETY PRECAUTIONS IN PLACE. ONE TO ONE SITTER FOR PT SAFETY. WILL CONTINUE TO MONITOR.
[2018-10-29 05:50] LABS: CREATININE 1.2 mg/dL (0.5-1.0)
[2018-10-29 05:53] LABS: HEMATOCRIT 38.1 % (37.0-47.0); HEMOGLOBIN 11.7 g/dl (12.0-16.0); IMMATURE GRANULOCYTES 0.9 % (0.0-5.0); MEAN CORPUSCULAR HGB 27.3 pG CALC (26.0-32.0); MEAN CORPUSCULAR HGB CONC 30.7 g/L CALC (32.0-36.0); NEUT# 8.45 thou/uL (2.00-7.15); RED BLOOD COUNT 4.28 mill/uL (4.20-5.60); RED CELL DISTRI WIDTH 14.3 % (11.5-15.5)
--- NOTE | 2018-10-29 07:15 | NUR ---
REPORT RECEIVED FROM KHRIS GREY;PT APPEARS TO BE SLEEPING IN SEMI FOWLERS POSITION WITH DAVID MARTINO SITTER;RESPIRATIONS APPEAR EVEN AND UNLABORED,SHALLOW ON O2 @ 2L VIA NC;NO S/S OF DISTRESS NOTED;FALL PRECAUTIONS NOTED WITH BED IN THE LOWEST POSITION AND CALL LIGHT IN REACH;WILL CONTINUE TO MONITOR
--- NOTE | 2018-10-29 07:30 | NUR ---
PT RESTING IN SEMI FOWLERS POSITION WITH DAVID MARTINO AT BEDSIDE;VS OBTAINED AND ASSESSMENT COMPLETED;RESPIRATIONS EVEN AND UNLABORED,SHALLOW ON O2 @ 2L VIA NC;ABDOMEN DISTENDED/SOFT ON PALPATION AND ACTIVE IN ALL 4 QUADRANTS;FISHER CATHETER PATENT DRAINING CLEAR/YELLOW URINE TO GRAVITY WITH EASE, STAT LOCK IN PLACE;WEAK PEDAL PULSES;SKIN INTACT;TELE MONITORING IN PLACE;#20G TO RIGHT FOREARM FLUSHED AND PATENT,SITE APPEARS HEALTHY;ACCUCHECK 238, PT COVERED WITH SLIDING SCALE NOVOLOG PER ORDER;PT DENIES ANY ADDITIONAL NEEDS AT THIS TIME OTHER THAN TO "GO HOME", ATTEMPTED TO RE-EDUCATED PT ON D/C PLAN;ENCOURAGED TO CALL FOR ASSISTANCE IF NEEDED;CALL LIGHT IN REACH;WILL CONTINUE TO MONITOR
[2018-10-29 07:32] VITALS: BP 172/59
--- NOTE | 2018-10-29 10:13 | NUR ---
AT BEDSIDE DISCUSSING POC INCLUDING DISCHARGE PLAN,PT VERBALIZE UNDERSTANDING.
[2018-10-29] MEDS ORDERED: MEDDOSEPAK PO (10:17)
[2018-10-29] MEDS ORDERED: AMLODIPINE BESYL5 MG PO (10:17)
[2018-10-29] MEDS ORDERED: LASIX20 MG PO (10:23)
--- NOTE | 2018-10-29 10:55 | NUR ---
PT RESTING IN SEMI FOWLERS POSITION WITH DAVID MARTINO AT BEDSIDE SITTER;RESPIRATIONS EVEN AND UNLABORED ON O2 @ 2L VIA NC;PT DENIES ANY CURRENT PAIN OR DISCOMFORTS;FISHER CATHETER EMPTIED OF 250CC OF OF CLEAR/YELLOW URINE AND FISHER CATHETER REMOVED AT THIS TIME PER ORDER;TELE MONITORING IN PLACE;IV SITE PATENT;ACCUCHECK 295, PT COVERED WITH SLIDING SCALE NOVOLOG PER ORDER;FALL PRECAUTIONS IN PLACE WITH CALL LIGHT IN REACH;WILL CONTINUE TO MONITOR
[2018-10-29 11:11] VITALS: BP 158/78
--- NOTE | 2018-10-29 13:00 | NUR ---
ALL DISCHARGE INSTRUCTIONS PROVIDED TO PT AND DAUGHTER. RX FOR NORVASC,PREDNISONE AND LASIX. ALL QUESTIONS ANSWERED AT THIS TIME. PT ENCOURAGED TO FOLLOW UP WITH PCP, HOME HEALTH AND USE HOME OXYGEN.PT DENIES ANY ADDITIONAL NEEDS;WHEELCHAIR TO BE PROVIDED FOR D/C HOME.IV SITE REMOVED WITH CATHETER INTACT
--- NOTE | 2018-10-29 13:16 | NUR ---
Discharge instructions given. Patient verbalizes understanding of same. Discharged in stable condition via Wheelchair to Home with family. All belongings sent with pt. Pt transported to lobby via wheelchair in stable condition accompanied by daughter and volunteer.
== END 2018-10-29 13:14 | disposition home health service (06) | DRG 189 ==
LOC: ED 02:39 → ED-I 04:50 → ED 05:33 → MS2 05:34
PROVIDERS: Emergency Medicine; Internal Medicine; ADMIT Internal Medicine; ATTEND Internal Medicine
PROC: 0T9B70Z Drainage of Bladder with Drainage Device, Via Natural or Artificial Opening (ICD-10-PCS; principal; 2018-10-25)
DX: J96.22 Acute and chronic respiratory failure with hypercapnia (principal); F03.91 Unspecified dementia, unspecified severity, with behavioral disturbance; J43.9 Emphysema, unspecified; J96.21 Acute and chronic respiratory failure with hypoxia; E11.65 Type 2 diabetes mellitus with hyperglycemia; I16.0 Hypertensive urgency; I10 Essential (primary) hypertension; M19.90 Unspecified osteoarthritis, unspecified site; E89.0 Postprocedural hypothyroidism; G47.30 Sleep apnea, unspecified; F17.210 Nicotine dependence, cigarettes, uncomplicated; T38.0X5A Adverse effect of glucocorticoids and synthetic analogues, initial encounter; Z91.130 Patient's unintentional underdosing of medication regimen due to age-related debility; Z79.4 Long term (current) use of insulin; Z99.81 Dependence on supplemental oxygen

== ENCOUNTER 2019-04-27 18:15 | Inpatient (IN) | payer MEDICARE, BC ==
[~2019-04-27] VITALS: Ht 162.6 cm; Wt 80.0 kg
[~2019-04-27 18:15] MED LIST changes: +ACETAMIN500 M2 PO; +ALLERGY RELF10 M3 PO; +AMLODIPINE BESYL5 MG PO; +CARVEDILOL12.5 MG PO; +COZAAR100 MG PO; +DONEPEZIL5 MG PO; +GABAPENTIN300 M2 PO; +GLIPIZIDE5 M2 PO; +HYDROXYZINE HYD25 MG PO; +LAMOTRIGINE100 MG PO; +LASIX 40 MG TAB40 MG PO; +LASIX20 MG PO; +LEVOTHYROXIN200 MCG PO; +LOVASTATIN10 M1 PO; +METFORMIN HCL500 M2 PO; +NEURONTIN300 MG PO; +PROAIR HFA108 MCG/AC PO; +TYLENOL500 MG PO
--- NOTE | 2019-04-27 18:38 | NUR ---
TO ROOM VIA WHEELCHAIR WITH FAMILY MEMBERS AT BEDSIDE.
[2019-04-27 19:54] LABS: IMMATURE GRANULOCYTES 0.4 % (0.0-5.0); MEAN CELL VOLUME 89.2 fL CALC (80.0-100.0); MEAN CORPUSCULAR HGB 28.2 pG CALC (26.0-32.0); MEAN CORPUSCULAR HGB CONC 31.6 g/L CALC (32.0-36.0); NEUT# 4.4 thou/uL (2.00-7.15); RED BLOOD COUNT 3.8 mill/uL (4.20-5.60); RED CELL DISTRI WIDTH 14.5 % (11.5-15.5)
[2019-04-27 19:57] LABS: HEMATOCRIT 33.9 % (37.0-47.0); HEMOGLOBIN 10.7 g/dl (12.0-16.0)
[2019-04-27 20:06] LABS: ALKALINE PHOSPHATASE 80 u/l (38-126); ANION GAP 14 (6-22 (CALC)); BILIRUBIN, TOTAL 0.5 mg/dL (0.0-1.4); BUN 15 mg/dL (8-23); BUN/CREATININE RATIO 15 (12-20 (CALC)); CARBON DIOXIDE 30 mmol/l (22-30); CHLORIDE 97 mmol/l (95-108); GFR 54 ML/MIN (>=60 (CALC)); GFR FOR AFR.AMER. > 60 ML/MIN (>=60 (CALC)); POTASSIUM 3.7 mmol/l (3.5-5.1); SGOT/AST 22 u/l (9-36); SODIUM 138 mmol/l (137-146); TOTAL PROTEIN 7.7 g/dL (6.3-8.2)
[2019-04-27 20:18] LABS: INTERNATIONAL NORMALIZED RATIO 1.1 RATIO (0.7-1.3); PROTHROMBIN TIME 11.4 SECONDS (9.0-12.5)
--- NOTE | 2019-04-27 22:10 | NUR ---
ASSUMED CARE. PT RESTING. NAD.
--- NOTE | 2019-04-27 22:50 | NUR ---
PT INCONT OF URINE. PT DISORIENTED. LINENS CHANGED AND PT CLEANSED.
--- NOTE | 2019-04-27 23:14 | NUR ---
PT SITTING UP AT BEDSIDE. GIVEN SOME OJ.
--- NOTE | 2019-04-28 | NUR ---
PT BACK TO BED. ANTIBIOTICS STARTED. PT MADE COMFORTABLE.
--- NOTE | 2019-04-28 00:25 | NUR ---
PT UP TO BSC TO VOID. NEXT THING I KNOW...PT IS STANDING AT DOOR WITH IV PULLED OUT. PT ASSISTED BACK TO BED AND LINENS CHANGED. ATTEMPTED IV ACCESS WITHOUT SUCCESS. ANOTHER NURSE IN TO DRAW WITHOUT SUCCESS.
--- NOTE | 2019-04-28 01:40 | NUR ---
IV RESTARTED AND ANTIBIOTICS UP.
--- NOTE | 2019-04-28 02:01 | NUR ---
REPORT TO MATILDA
--- NOTE | 2019-04-28 02:14 | NUR ---
PT ARRIVED TO THE FLOOR VIA STRETCHER ACCOMPANIED BY ED STAFF, PT UNABLE TO WALK FROM STRETCHER TO THE BED AT THIS TIME, PT ABLE TO ROLE FROM STRETCHER TO BED. PT CLEANED UP FROM SMALL BM. PT CONFUSED, UNABLE TO ANSWER QUESTIONS ABOUT MEDICAL HX. RESPIRATIONS EVEN AND UNLABORED ON O2 @ 2L VIA NC. LUNGS SOUND DIMINISHED. PEDAL PULSES WEAK. SKIN IS INTACT. BED ALARM ACTIVE FOR PT SAFETY. WILL CONITUE TO MONITOR.
--- NOTE | 2019-04-28 02:15 | NUR ---
TO FLOOR VIA STRETCHER WITH O2/POCKET MONITOR AND ANTIBIOTICS INFUSING.
[2019-04-28 02:30] VITALS: BP 153/79
--- NOTE | 2019-04-28 04:15 | NUR ---
TO FLOOR WITH MONITOR/O2/IV ANTIBIOTICS INFUSING.
--- NOTE | 2019-04-28 04:36 | NUR ---
PT RESTING IN BED, TELE IN PLACE, NO S/S OF DISTRESS AT THIS TIME, WILL CONTINUE TO MONITOR.
[2019-04-28 04:43] VITALS: BP 156/73
[2019-04-28 08:50] LABS: HEMATOCRIT 32.2 % (37.0-47.0); HEMOGLOBIN 10.4 g/dl (12.0-16.0); IMMATURE GRANULOCYTES 0.4 % (0.0-5.0); MEAN CELL VOLUME 88.5 fL CALC (80.0-100.0); MEAN CORPUSCULAR HGB 28.6 pG CALC (26.0-32.0); MEAN CORPUSCULAR HGB CONC 32.3 g/L CALC (32.0-36.0); NEUT# 4.38 thou/uL (2.00-7.15); RED BLOOD COUNT 3.64 mill/uL (4.20-5.60); RED CELL DISTRI WIDTH 14.3 % (11.5-15.5)
[2019-04-28 09:39] LABS: ANION GAP 15 (6-22 (CALC)); BUN 14 mg/dL (8-23); BUN/CREATININE RATIO 17 (12-20 (CALC)); CARBON DIOXIDE 29 mmol/l (22-30); CHLORIDE 97 mmol/l (95-108); CREATININE 0.8 mg/dL (0.5-1.0); GFR > 60 ML/MIN (>=60 (CALC)); GFR FOR AFR.AMER. > 60 ML/MIN (>=60 (CALC)); POTASSIUM 3.8 mmol/l (3.5-5.1); SODIUM 137 mmol/l (137-146)
[2019-04-28 10:07] VITALS: BP 184/90
[2019-04-28 13:10] LABS: MAGNESIUM 1.6 mg/dL (1.6-2.3)
[2019-04-28] MEDS ORDERED: LANTUS100 UNIT/M SC (14:13)
[2019-04-28] MEDS ORDERED: NORVASC PO (14:14)
[2019-04-28] MEDS ORDERED: METOPROL TAR25 MG PO (14:15)
[2019-04-28] MEDS ORDERED: PLAVIX75 MG PO (14:15)
[2019-04-28] MEDS ORDERED: SYNTHROID200 MCG PO (14:15)
[2019-04-28] MEDS ORDERED: TRAMADOL HCL50 MG PO (14:16)
[2019-04-28] MEDS ORDERED: TEMAZEPAM15 MG PO (14:16)
[2019-04-28] MEDS ORDERED: ZOLOFT50 MG PO (14:17)
[2019-04-28] MEDS ORDERED: HYDROXYZ HCL25 MG PO (14:18)
[2019-04-28] MEDS ORDERED: BUMETANIDE1 MG PO (14:19)
[2019-04-28] MEDS ORDERED: DOCUZEN 8.6-501 TAB PO (14:20)
--- NOTE | 2019-04-28 14:47 | NUR ---
WOUND CARE PROVIDED PER ORDER, CHECKED PULSE WITH DOPPLER PER MD REQUEST
[2019-04-28 15:46] VITALS: BP 152/84
--- NOTE | 2019-04-28 17:42 | NUR ---
HEAD TO TOE ASSESSMENT COMPLETED. pATIENT IS CONFUSE AT TIMES BUT ABLE TO MAKE HER NEEDS KNOWN. NO C/O PAIN, NO S/S OF RESP DISTRESS. PATIENT HAD A BOWEL MOVEMENT TODAY. PATIENT ON 2-3 LITERS OF OXYGEN. NO SKIN ISSUES NOTED. POC DISSCUSSED WITH ROSA/
[2019-04-28 18:31] VITALS: BP 151/70
--- NOTE | 2019-04-28 19:22 | NUR ---
ASSESSMENT COMPLETED. NO DISTRESS NOTED; PT. REPORTS DRY COUGH AND WOULD LIKE COUGH SYRUP, WILL CALL FISHER CRAB MD FOR FURTHER ORDERS. IV SITE PATENT AND SL. ENCOURAGED TO CALL FOR ANY NEEDS. CALL LIGHT IS IN REACH. WILL CONTINUE TO MONITOR.
--- NOTE | 2019-04-28 23:00 | NUR ---
ASKED PT. TO TRY AND GET OOB TO VOID AND DECLINES AT THIS TIME. PT. IS INCONTINENT OF LARGE AMOUNT OF URINE AND BM, DIONICIO CARE GIVEN AND NEW PADS APPLIED. PUREWIC PLACED TO ATTEMPT TO GET URINE SAMPLE ORDERED. SNACK PROVIDED. CALL LIGHT IS IN REACH.
[2019-04-28 23:10] VITALS: BP 155/78
[2019-04-29 01:17] LABS: URINE BILIRUBIN - DIPSTICK NEGATIVE (NEGATIVE); URINE BLOOD DIPSTICK NEGATIVE (NEGATIVE); URINE COLOR YELLOW; URINE GLUCOSE - DIPSTICK NEGATIVE (NEGATIVE); URINE KETONE NEGATIVE (NEGATIVE); URINE LEUK ESTERASE NEGATIVE (NEGATIVE); URINE NITRITE - DIPSTICK NEGATIVE (Negative); URINE PROTEIN - DIPSTICK NEGATIVE (NEG-TRACE); URINE SPECIFIC GRAVITY <=1.005; URINE UROBILINOGEN - DIPSTICK 0.2 E.U./dL (0.2)
[2019-04-29 03:22] VITALS: BP 168/74
--- NOTE | 2019-04-29 03:31 | NUR ---
PT. C/O UPSET STOMACH AND GIVEN JOESPH JANET AND SALTINE CRACKERS. PT. REPOSITIONED INTO BED AND CHECKED FOR INCONTINENCE NONE NOTED. PUREWIC IN PLACE.
--- NOTE | 2019-04-29 04:30 | NUR ---
EDUCATION GIVEN ON INCENTIVE SPIROMETER AND ABLE TO PULL 500; WILL NEED ENCOURAGEMENT.
[2019-04-29 05:20] LABS: HEMATOCRIT 30.2 % (37.0-47.0); HEMOGLOBIN 9.8 g/dl (12.0-16.0); IMMATURE GRANULOCYTES 0.3 % (0.0-5.0); MEAN CELL VOLUME 87.5 fL CALC (80.0-100.0); MEAN CORPUSCULAR HGB 28.4 pG CALC (26.0-32.0); MEAN CORPUSCULAR HGB CONC 32.5 g/L CALC (32.0-36.0); NEUT# 5.94 thou/uL (2.00-7.15); RED BLOOD COUNT 3.45 mill/uL (4.20-5.60); RED CELL DISTRI WIDTH 14.4 % (11.5-15.5)
[2019-04-29 05:38] LABS: ANION GAP 10 (6-22 (CALC)); BUN 18 mg/dL (8-23); BUN/CREATININE RATIO 20 (12-20 (CALC)); CARBON DIOXIDE 31 mmol/l (22-30); CHLORIDE 99 mmol/l (95-108); CREATININE 0.9 mg/dL (0.5-1.0); GFR > 60 ML/MIN (>=60 (CALC)); GFR FOR AFR.AMER. > 60 ML/MIN (>=60 (CALC)); MAGNESIUM 1.7 mg/dL (1.6-2.3); SODIUM 136 mmol/l (137-146)
--- NOTE | 2019-04-29 05:40 | NUR ---
PT. REPOSITIONED AND CLEANED OF A LARGE AMOUNT OF URINE AND PUREWIC CONTAINER EMPTIED. FRESH WATER GIVEN. CALL LIGHT IS IN REACH.
[2019-04-29 07:30] VITALS: BP 170/89
--- NOTE | 2019-04-29 07:40 | NUR ---
PT IS TRYING TO GET OUT OF BED. PT STATED SHE IS GOING HOME. PT IS CONFUSED. REORIENT PT. PT IS REFUSING HER NOVOLOG. BED ALARM IN PLACE AND SAFETY PRECAUTIONS REINFORCED AND CALL LIGHT IN REACH.
--- NOTE | 2019-04-29 08:30 | NUR ---
PT IS SITTING IN THE SIDE OF THE BED. PT STATED SHE IS GOING TO THE STORE. PT IS A&O X1 BUT CONFUSED AT TIMES. TELE IN PLACE. PT DENIES PAIN AT THIS TIME. PT REMOVED HER PURE WICK. PT REFUSING HER LEVEMIR. BED ALARM IN PLACE. NOTIFIED ROSA STUART RE: PT REFUSING HER MEDICATIONS.
[2019-04-29 11:30] VITALS: BP 172/78
--- NOTE | 2019-04-29 12:05 | NUR ---
MEDICATED PT WITH APRESOLINE FOR BP 172/78. NOTIFIED MD RE: PT BP. DR. BERNAL AND ROSA STUART IN ROOM TO DISCUSS POC WITH PT BUT PT IS YELLING. BED ALARM IN PLACE.
[2019-04-29 14:37] VITALS: BP 153/69
--- NOTE | 2019-04-29 16:03 | NUR ---
PT IS RESTING IN BED WITH NO S/S OF DISTRESS NOTED. PT DENIES NEEDS AT THIS TIME. BED ALARM IN PLACE AND CALL LIGHT IN REACH.
--- NOTE | 2019-04-29 17:36 | NUR ---
PATIENT REFUSED TO BE EVALUATED TODAY. SHE REQUESTED TO BE SEEN TOMORROW INSTEAD.
[2019-04-29 18:51] VITALS: BP 140/57
--- NOTE | 2019-04-29 19:30 | NUR ---
CHANGE OF SHIFT REPORT RECEIVED FROM KHRIS STARK. PT IS ALERT AND ORIENTED X 2. PATIENT MILDLY AGITATED. PATIENT SHOUTS EVERY TIME SHE SEE A STAFF MEMBER PASS BY HER DOOR. PATIENT DENIES ANY PAIN OR DISTRESS. PATIENT CLOSE TO NURSING STATION, CALL LIGHT WITHIN EASY REACH, BED IN LOWEST POSITION. THERAPEUTIC LISTENING PROVIDED. REDIRECTION PROVIDED. REGIONAL EDUCATION MANAGER WILL CONTINUE TO MONITOR.
--- NOTE | 2019-04-30 | NUR ---
PATIENT SLEEPING BUT AWAKES EASILY. PATIENT REFUSED FOR VITAL SIGNS TO BE TAKEN. PATIENT SHOUTING FOR APPROXIMATELY 5 MINUTES. PT REASSURED. PATIENT BACK TO SLEEP. SEARCH PLANNER WILL CONTINUE TO MONITOR
--- NOTE | 2019-04-30 01:28 | NUR ---
patient refused to get midnight vitals.
--- NOTE | 2019-04-30 04:00 | NUR ---
PATIENT CLEANED AND REPOSITIONED. PT HAD BM. PT IS MIDLY AGITATED. PATIENT REDIRECTED, THERAPEUTIC LISTENING PROVIDED. PT COMPLAINED OF PAIN LEVEL OF 5/10 ON LEFT ARM. NO SWELLING, NO REDNESS, NO SWELLING NOTED. REINFORCEMENT ADND REASSURANCE PROVIDRD. COOL CLOTH PLACED ON LEFT. ORIENTAL RUG REPAIRER WILL CONTINUE TO MONITOR.
[2019-04-30 04:10] VITALS: BP 160/86
--- NOTE | 2019-04-30 07:40 | NUR ---
PT REFUSED FOR [email or web address] TO DRAW HER LABS.
--- NOTE | 2019-04-30 08:04 | NUR ---
PT IS A&O X1 BUT IS CONFUSED AT TIMES. TELE IN PLACE. PO FLUIDS PROVIDED. PT STATED SHE WANTS TO BE LEFT ALONE. PT DENIES ANY OTHER NEEDS AT THIS TIME. BED ALARM IN PLACE AND CALL LIGHT IN REACH.
[2019-04-30 08:30] VITALS: BP 180/82
[2019-04-30 10:40] VITALS: BP 172/94
--- NOTE | 2019-04-30 11:45 | NUR ---
PT IS SITTING IN THE SIDE OF THE BED. MEDICATED PT WITH APRESOLINE FOR BP 172/94. PT REFUSED HER INSULIN. PT STATED NO I DONT WANT IT. BED ALARM IN PLACE.
[2019-04-30 11:46] LABS: CREATININE 1.1 mg/dL (0.5-1.0); MAGNESIUM 1.7 mg/dL (1.6-2.3); POTASSIUM 3.8 mmol/l (3.5-5.1)
[2019-04-30 12:04] LABS: HEMATOCRIT 31.6 % (37.0-47.0); HEMOGLOBIN 10.2 g/dl (12.0-16.0); MEAN CELL VOLUME 87.3 fL CALC (80.0-100.0); MEAN CORPUSCULAR HGB 28.2 pG CALC (26.0-32.0); MEAN CORPUSCULAR HGB CONC 32.3 g/L CALC (32.0-36.0); RED BLOOD COUNT 3.62 mill/uL (4.20-5.60); RED CELL DISTRI WIDTH 14.4 % (11.5-15.5)
[2019-04-30 15:00] VITALS: BP 171/73
--- NOTE | 2019-04-30 16:30 | NUR ---
PT IS SITTING IN CHAIR. PT CALLING THE PIECE DYE WORKER THAT SHE NEEDS HELP TO THE BATHROOM. REORIENT PT BUT SHE IS NONCOMPLAINT. PT REUFUSED FOR ME TO FLUSH HER IV. PT STATED LEAVE ME ALONE. BED ALARM IN PLACE AND CALL LIGHT IN REACH.
--- NOTE | 2019-04-30 17:05 | NUR ---
RECEIVED A CALL FROM JACEK OSORIO: A MESSAGE ON HER MACHINE IN THE OFFICE FROM THIS PT. "WANTING THE SAME PERSON TO COME BACK AND SSEE HER FROM THIS AM".
--- NOTE | 2019-04-30 17:46 | NUR ---
CHRISTIE FROM CALLED STATED PT CALLED HER. PT HAS BEEN CALLING PARTS OF THE HOSPTIAL USING HER PHONE IN THE ROOM. REORIENT PT BUT PT IS NONCOMPLIANT. PT REFUSED HER INSULIN STATED NO. BED ALARM IN PLACE.
[2019-04-30 18:00] VITALS: BP 162/88
--- NOTE | 2019-04-30 18:43 | NUR ---
PT CALLLING THE CODE PHONE. REORIENT PT. BED ALARM IN PLACE.
[2019-04-30 19:02] VITALS: BP 145/66
--- NOTE | 2019-04-30 19:35 | NUR ---
REPORT RECEIVED FROM KHRIS STARK. PT RESTING IN BED SEMI FOWLERS; ALERT AND ORIENTED X 1 TO PERSON. VERY TALKATIVE WITH ELYSSANON SENTENCES AND INSISTANT THAT SHE WILL BE LEAVING TO GO HOME IN THE MORNING. EXPLAINS THAT IS AMBULATORY WITH A WALKER, HAS A THREE BEDROOM HOME AND ADULT CHILDREN TO CARE FOR HER. SHE ALSO STATES, "WHAT THEY'RE WANTING ME TO DO IS [facility]. IF THEY DONT DISCHARGE ME HOME IN THE MORNING ILL HAVE MY FORGING PRESS LEVER TENDER AT WORK BY THE WEEKEND." ALLOWED PT TO VERBALIZE HER CONCERNS AND ENCOURAGED HER TO ALLOW TIME TO DISCUSS HER D/C WITH THE MD AND CASE MANAGEMENT INCLUDING WHAT IS SAFE FOR HER. PT DENIES PAIN. RESPIRATIONS EVEN AND UNLABORED ON OXYGEN 2L VIA NC. PURWIK CATHETER IN PLACE. TELE ON. SAFETY MEASURES IN PLACE. CALL LIGHT WITHIN REACH WHICH PT IS USING FREQUENTLY TO ASK SOMEONE TO CALL HER FAMILY TO TELL THEM TO GET HERE EARLY IN THE MORNING TO PICK HER UP AND TAKE HER HOME.
--- NOTE | 2019-04-30 20:06 | NUR ---
ASSESSMENT COMPLETED. IV SITE TO LFA INFILTRATED WITH FLUSH; IV SITE REMOVED. PT REFUSED TO HAVE ANOTHER IV INITIATED AT THIS TIME. PERISTENT WITH PLAN TO BE DISCHARGED HOME. SPOKE WITH DAUGHTER ON THE PHONE WHO REPORTS THAT IT IS NOT SAFE FOR HER TO BE HOME. PT SPEAKING WITH DAUGHTER NEO ON THE PHONE NOW.
--- NOTE | 2019-04-30 22:00 | NUR ---
RESTORIL GIVEN WITH HS MEDICATIONS AND NOW PT REQUESTING COFFEE AND SANDWHICH; TURKEY SANDWHICH PROVIDED. PT USING PHONE TO CALL VARIOUS NUMBERS ASKING FOR NURSE; PHONE REMOVED FROM BEDSIDE AND PT EDUCATED CLERK SECRETARY LIGHT. PT HAS MANY QUESTIONS ABOUT HER DISCHARGE PLANS; ATTEMPTED TO ANSWER ALL CONCERNS. PT SEEMS MORE RELAXED AFTER LONG CONVERSATION AND ANSWERED QUESTIONS.
--- NOTE | 2019-05-01 00:13 | NUR ---
PT ASLEEP WITH NO SIGNS OF DISTRESS. RESPIRATIONS EVEN AND UNLABORED ON OXYGEN. REPOSITIONING SELF IN BED. STILL REFUSED IV SITE. NEW ORDERS FOR SOME PO MEDICATIONS INCLUDING PREDNISONE AND PRN CLONIDINE. CALL LIGHT WITHIN REACH.
--- NOTE | 2019-05-01 04:25 | NUR ---
NO ACUTE CHANGES IN CONDITION THROUGHOUT THE NIGHT. SAFETY PRECAUTIONS IN PLACE INCLUDING BED ALARM.
[2019-05-01 04:50] VITALS: BP 170/71
[2019-05-01 08:00] VITALS: BP 170/70
[2019-05-01 10:52] VITALS: BP 114/69
[2019-05-01 16:20] VITALS: BP 160/72
--- NOTE | 2019-05-01 16:38 | NUR ---
PT WAS SEEN SITTING IN THE CHAIR. SHE AGREED TO PARTICIPATE WITH THERAPY SIT>STAND WITH MULTIPLE ATTEMPTS WITH THE USE OF B UE. IMMEDIATE STANDING BALANCE WAS FAIR AND NEEDS TO BE IMPROVED. SHE WAS ABLE TO TRANSFER BED<>CHAIR WITH RW, VERBAL CUES AND CGA. THEN, SHE AMBULATED IN THE HALLWAY WITH RW AND CGA X 75FT X 2 WITH PORTABLE O2 AT 2L. NO ADVERSE REACTIONS NOTED OR REPORTED WHILE AMBULATING. PT WAS HAPPY AND EXCITED TO RETURN HOME. HER AMPAC YESTERDAY WAS 9 POINTS. TODAY, HER AMPAC SCORE SIGNIFICANTLY IMPROVED TO 16 POINTS, INDICATING THAT PT WILL BE SAFE TO BE DISCHARGED HOME WITH PHYSICAL THERAPY INTERVENTION FOR GEN. CONDITIONING/STRENGTHENING AND BALANCE TRAINING.
[2019-05-01 18:45] VITALS: BP 150/69
--- NOTE | 2019-05-01 19:17 | NUR ---
REPORT GIVEN BY GEOVANNA PINEDO. PATIENT SITTING IN THE CHAIR AT THE BEDSIDE WITH FAMILY PRESENT. RESP EVEN AND UNLABORED. NO S/S OF DISTRESS NOTED. PLAN OF CARE DISCUSSED. PATIENT INFORMED TO CALL WITH ANY QUESTIONS OR CONCERNS. FALL PRECAUTIONS IN PLACE. PATIENT HAS REFUSED IV PLACEMENT, MD AWARE.
--- NOTE | 2019-05-01 20:40 | NUR ---
INFORMED OF PATIENT BLOOD SUGAR OF 431. NEW ORDERS GIVEN FOR INSULIN.
--- NOTE | 2019-05-01 22:30 | NUR ---
PATIENT CONTIUNES TO ASK STAFF FOR A 2ND SANDWHICH AFTER BEING TOLD THAT HER BLOOD SUGAR IS HIGH AND WE WOULD LIKE TO PUT OFF EATING ANYTHING RIGHT NOW. PATIENT ISN'T CONCERNED ABOUT HER BLOOD SUGAR. SHE HAS BEEN EDUCATED ON THE DANGERS OF HIGH BLOOD SUGAR.
--- NOTE | 2019-05-01 23:26 | NUR ---
PATIENT AWAKE WATCHING TV. RESP EVEN AND UNLABORED. NO S/S OF DISTRESS NOTED.
[2019-05-02 00:21] VITALS: BP 153/65
[2019-05-02 03:41] VITALS: BP 155/60
--- NOTE | 2019-05-02 04:03 | NUR ---
PATIENT AWAKE AND WATCHINGTV. CURRENLTY ASKING STAFF FOR FOOD. RESP EVEN AND UNLABORED. NO S/S OF DISTRESS NOTED.
--- NOTE | 2019-05-02 07:15 | NUR ---
CHANGE OF SHIFT REPORT RECEIVED FROM SN DEMI. PATIENT BEING ASSISTED TO COMMODE BY CLINIC SUPERVISOR. PATIENT ABLE TO VERBALIZE NEEDS. PATIENT MILDLY AGITATED. REDIRECTION PROVIDED. WASTE COLLECTOR WILL CONTINUE TO MONITOR.
[2019-05-02 09:30] VITALS: BP 161/59
[2019-05-02 11:09] VITALS: BP 183/89
--- NOTE | 2019-05-02 12:00 | NUR ---
PATIENT STABLE. SITTING UP IN CHAIR EATING. 4 UNITS OF NOVOLOG ADMINISTERED FOR BLOOD SUGAR OF 232. PATIENT STABLE. RESIDENTIAL CAREGIVER WILL CONTINUE TO MONITOR
--- NOTE | 2019-05-02 12:00 | NUR ---
PATIENT RESTING COMFORTABLY. PATIENT DENIES PAIN OR DISCOMFORT. PATIENT ABLE TO MAKE NEEDS KNOWN
--- NOTE | 2019-05-02 14:34 | NUR ---
PATIENT REFUSED PT TREATMENT DESPITE SEVERAL ENCOURAGEMENTS AND ATTEMPTS.
[2019-05-02 15:00] VITALS: BP 158/75
--- NOTE | 2019-05-02 16:10 | NUR ---
PATIENT ASSISTED TO COMMODE. PT HAD SECOND BM OF THE DAY. PT EASILY AGITATED. PATIENT REDIRECTED. PATIENT ENCOURAGED CHANGE POSITION. PATIENT ABLE TO MAKE NEEDS KNOWN. PATIENT REQUIRES FREQUENT REDIRECTION. RATE SUPERVISOR WILL CONTINUE TO MONITOR.
--- NOTE | 2019-05-02 19:00 | NUR ---
REPORT RECEIVED FROM DAY NURSE. PT SITTING UP IN CHAIR AT BEDSIDE. ALERT AND ORIENTED. DENIES PAIN. RESPIRATIONS EVEN AND UNLABORED ON OXYGEN 2L VIA NC. PT VERY TALKATIVE. ATTEMPTS TO GET THE ATTENTION FROM ANYONE PASSING BY HER DOOR TO DISCUSS HER DISCHARGE PLANS AND GOING HOME. WANTS SOMEONE TO SIT DOWN WITH HER TO TALK ABOUT WHY SHE IS SAFE TO GO HOME AND THAT SHE WANTS TO GO HOME RIGHT NOW. ALLOWED PT TO VERALIZE CONCERNS. SAFETY MEASURES IN PLACE. CALL LIGHT WITHIN REACH.
[2019-05-02 19:05] VITALS: BP 145/68
--- NOTE | 2019-05-02 19:55 | NUR ---
VISITORS AT BEDSIDE. PT REQUESTING SNACKS.
--- NOTE | 2019-05-02 22:46 | NUR ---
RESTORIL GIVEN WITH PM MEDICATIONS. HS ACCU CHECK 443; ADDITIONAL 10 UNITS ORDERED AND GIVEN FOR A TOTAL OF 24 UNITS. SNACK PROVIDED. PT DECLINED TO GET INTO BED AFTER SNACK AND MEDS. CURRENTLY ASLEEP IN BEDSIDE CHAIR. WILL CONTINUE TO MONITOR.
[2019-05-03] VITALS (7 sets, daily range): BP systolic 115–156; BP diastolic 51–89
--- NOTE | 2019-05-03 00:28 | NUR ---
PT REMIANS ASLEEP IN BEDSIDE CHAIR WITH NO SIGNS OF DISTRESS. RESPIRATIONS EVEN AND UNLABORED ON OXYGEN. SAFETY MEASURES IN PLACE. CALL LIGHT WITHIN REACH.
--- NOTE | 2019-05-03 04:25 | NUR ---
NO ACUTE CHANGES THROUGHOUT THE NIGHT. SAFETY MEASURES IN PLACE. CALL LIGHT WITHIN REACH.
--- NOTE | 2019-05-03 05:36 | NUR ---
PT REPOSITIONED INTO BED; NO URINARY INCONTINENCE NOTED. PT REQUESTING SNACK.
--- NOTE | 2019-05-03 08:40 | NUR ---
ASSESSMENT IS COMPLETED: HR IS REG,PULSES ARE STRONG X4, ABD IS SOFT WITH ACTIVE BS. BREATH SOUNDS ARE COARSE AND CLEAR.O2 @ 2LITERS WITH NC. TELE MONITOR IN PLACE CONTINUE TO OBSERVE AND MONITOR.
--- NOTE | 2019-05-03 12:00 | NUR ---
PT IS RELAXING IN BED WITH NO DISTRESS NOTED. CONTINEU TO OSBERVVE AND MONITOR.,
--- NOTE | 2019-05-03 15:26 | NUR ---
SPOKE WITH HERMINIA NURSING DRY HOUSE OPERATOR AT [facility]. INFORMED THAT PT DOESN'T TRY TO WANDER OR GET OUT OF BED BY HERSELF. FAMILY IS AFRAID THAT SHE WILL FALL AT HOME. AND SHE LIKES TO SPEAK ALOT ABOUT [place]
--- NOTE | 2019-05-03 16:00 | NUR ---
PT HAS BEEN VISITED BY FAMILY AND AQUILINO MANOR STAFF. CONTINUE TO OBSERVE AND MONTIOR.
--- NOTE | 2019-05-03 16:17 | NUR ---
Physical therapist tried to see the patient this morning. Patient was sleepy and was not able to confirm willingness to participate in physical therapy.
--- NOTE | 2019-05-03 16:19 | NUR ---
May 02, 2019, Physical therapist tried to see the patient for physical therapy. Patient verbally refused.
--- NOTE | 2019-05-03 16:55 | NUR ---
BS OF 513 REPORTED TO KRYSTAL GAMBLE. WILL INCREASE [place]OUNT[place] F COVERAGE TO BE GIVEN.
--- NOTE | 2019-05-03 20:00 | NUR ---
CHANGE OF SHIFT REPORT RECEIVED FROM ROSE ESTRADA. PATIENT CALLING OUT AND FIXATED ON TOPIC OF FOOD. DISTRACTION AND THERAPEUTIC LISTENING PROVIDED. ASSISTANT MEDIA PLANNER WILL CONTINUE TO MONITOR.
--- NOTE | 2019-05-04 | NUR ---
PATIENT VERY AGITATED. REQUESTING MORE AND MORE SNACKS. SANDWICH AND CRACKERS OFFERED. EDUCATION PROVIDED ON HYPERGLYCEMIA AND S/S OF HYPOGLYCEMIA. PATIENTS BLOOD GLUCOSE >300. PARTIAL BATH GIVEN. BED LINENS CHANGED. PATIENT SEATED ON COMMODE. PT VOIDED. PT ASSISTED BACK INTO BED. LIGHTS TURNED DOWN, CALL LIGHT WITHIN EASY REACH, BED IN LOWEST POSITION. WITER WILL CONTINUE TO MONITOR.
[2019-05-04 04:15] VITALS: BP 165/72
--- NOTE | 2019-05-04 04:30 | NUR ---
PATIENT CONTINUES TO CALL OUT. PT REQUEST FOOD CONSTANTLY WITH NO SIGN OF SATIETY. PT RE-ORIENTED FREQUENTLY; REDIRECTION AND THERAPEUTIC LISTENING PROVIDED. TYLENOL ADMINIDTRED FOR C/O PAIN. FACILITY ATTENDANT WILL CONTINUE TO MONITOR.
[2019-05-04 04:55] LABS: HEMATOCRIT 33.1 % (37.0-47.0); HEMOGLOBIN 10.6 g/dl (12.0-16.0); MEAN CORPUSCULAR HGB 28.2 pG CALC (26.0-32.0); RED BLOOD COUNT 3.76 mill/uL (4.20-5.60); RED CELL DISTRI WIDTH 14.5 % (11.5-15.5)
[2019-05-04 05:13] LABS: CREATININE 1.1 mg/dL (0.5-1.0); MAGNESIUM 1.8 mg/dL (1.6-2.3); POTASSIUM 3.8 mmol/l (3.5-5.1)
[2019-05-04 08:50] VITALS: BP 140/53
--- NOTE | 2019-05-04 08:50 | NUR ---
ASSESSMENT IS COMPLETED: IV SITE IS FREE FROM REDNESS OR EDEMA. HR IS REG,PULSES ARE STRONG X4. ABD IS SOFT WITH ACTIVE BS. BREATH SOUNDS ARE CLEAR AND DIMINISHED. O2 @ 3LTERS WITH NC. COTNINUE TO OSBERVE AND MONITOR.
[2019-05-04 11:05] VITALS: BP 147/70
--- NOTE | 2019-05-04 12:00 | NUR ---
PT IS RELAXING IN THE CHAIR, NO DISTRESS NOTED
[2019-05-04 15:08] VITALS: BP 161/64
--- NOTE | 2019-05-04 16:00 | NUR ---
PT HAS BEEN IN THE CHAIR. NO DISTRESS NOTED. CONTINUE TO OBSERVE AND MONITOR.
[2019-05-04 18:14] VITALS: BP 155/70
--- NOTE | 2019-05-04 18:17 | NUR ---
PT WAS ASSISTED TO THE BSC AND INSISTED THAT THE CHAIR BE REMOVED. STATED" I AM UNCOMFORTABLE IN THE CHAIR". EXPLAINED THE CHAIR. NEEDS TO STAY IN HER ROOM. CONTINUE TO OBSERVE AND MONITOR.
--- NOTE | 2019-05-04 18:35 | NUR ---
PT WANTING TO BE RELEASED TO GO TO [facility] " THE GOVERNMENT HAS LEFT ME IN CHARGE OF THE [place] [facility]".
--- NOTE | 2019-05-04 20:30 | NUR ---
PT COMPLETED TURKEY SANDWICH AND DIET GINGERALE FOR HS SNACK AFTER HS INSULIN COVERAGE. ASSISTED BACK TO BED. CALL DE LEON WITHIN REACH. AGREES TO CALL PRN.
--- NOTE | 2019-05-05 00:15 | NUR ---
PT APPEARS TO BE SLEEPING COMFORTABLY, RESP REG/UNLABORED, NO APPARENT DISTRESS, CALL DE LEON REMAINS WITHIN REACH.
[2019-05-05 03:51] VITALS: BP 132/78
--- NOTE | 2019-05-05 04:15 | NUR ---
PT AWAKE, REQUESTING SOMETHING TO EAT, GIVEN TURKEY SANDWICH AND DECAF COFFEE WITH SUGAR SUBSTITUTE AND SKIM MILK. PT DENIES FURTHER NEEDS AT THIS TIME, CALL DE LEON WITHIN REACH. AGREES TO CALL PRN.
[2019-05-05 05:23] LABS: BILIRUBIN, TOTAL 0.3 mg/dL (0.0-1.4); CREATININE 1.1 mg/dL (0.5-1.0)
[2019-05-05 05:25] LABS: TOTAL PROTEIN 5.7 g/dL (6.3-8.2)
[2019-05-05 05:27] LABS: HEMATOCRIT 30.2 % (37.0-47.0); HEMOGLOBIN 9.8 g/dl (12.0-16.0); IMMATURE GRANULOCYTES 1.6 % (0.0-5.0); MEAN CELL VOLUME 87.8 fL CALC (80.0-100.0); MEAN CORPUSCULAR HGB 28.5 pG CALC (26.0-32.0); MEAN CORPUSCULAR HGB CONC 32.5 g/L CALC (32.0-36.0); NEUT# 7.94 thou/uL (2.00-7.15); RED BLOOD COUNT 3.44 mill/uL (4.20-5.60); RED CELL DISTRI WIDTH 14.9 % (11.5-15.5)
--- NOTE | 2019-05-05 08:00 | NUR ---
PT IS RESITNG IN BED WITH NO DISTRESS NOTED. HR IS REG,PULSES ARE STRONG X4, ABD IS SOFT WITH ACTIVE BS. BREATH SOUNDS ARE CLEAR. TELE MONITOR IN PLACE. CONTINUE TO OBSEREV AND MONITOR.
--- NOTE | 2019-05-05 12:15 | NUR ---
PT IS RELAXING IN BED WITH NO DISTRES NOTED. IV SITE IS FREE FROM REDNESS OR EDEMA.
--- NOTE | 2019-05-05 16:05 | NUR ---
PT IS VISITING WITH FAMILY IN THE ROOM. TELE MONITOR DISCONTINUED CATHETER INTACT.
[2019-05-05 16:14] VITALS: BP 165/87
--- NOTE | 2019-05-05 16:15 | NUR ---
PT IS VISITING WITH FAMILY AND HER CREDIT CASHIER IN THE ROOM. THE CREDIT CASHIER HAS BROUGHT FRIED CHICKEN AND MASH POTATOES FOR THE PT. CONTINUE TO OSBERVE AND MONITOR. CONTINUE TO SIT IN THE CHAIR AT THIS TIME.
--- NOTE | 2019-05-05 16:45 | NUR ---
PT REQUESTED TO GO BACK TO BED. WITH STAND BY ASSIST AND THE WALKER PT ABLE TO GET BACK INTO BED . FAMILY IN THE ROOM. CONTINUE TO OSBERVE AND MONITOR.
[2019-05-05 18:40] VITALS: BP 163/77
--- NOTE | 2019-05-05 19:45 | NUR ---
PHYSICAL ASSESMENT COMPLETE. NOTED PT'S RESPIRATIONS APPEAR SLIGHTLY MORE LABORED TODAY. COARSE CRACKLES NOTED THROUGHOUT. PT GUIDED THROUGH C/D/B EXERCISES. PT HAS POOR COUGH EFFORT. COUGH NON-PRODUCTIVE. ENCOURED PT TO CON'T C/D/B EXERCISES. PLAN OF CARE REVIEWED WITH PT. CALL DE LEON WITHIN REACH, AGREES TO CALL PRN.
--- NOTE | 2019-05-05 20:30 | NUR ---
PT GIVEN DIABETIC HS SNACK PER HER REQUEST, TURKEY SANDWICH AND ENSURE.
[2019-05-06] VITALS (23 sets, daily range): BP systolic 125–170; BP diastolic 48–104
--- NOTE | 2019-05-06 00:30 | NUR ---
PT C/O SOB, RESPIRATIONS ARE NOTICEABLY MORE LABORED THAN ON INITIAL ASSESMENT. COARSE CRACKLES ARE AUDIBLE WITH RESPIRATIONS. ON AUSCULATATION COARSE CRACLES THROUGHOUT B/L LUNGS HAVE GOTTEN WORSE. PT SITTING AT SIDE OF BED. O2 SAT 98-99% ON FIO2 2L/MIN VIA NC, B/P 170/83 AND 162/59 ON RECHECK. HR 79. CALLED AND SPOKE W/ DR POTTS AND ORDERS RECEIVED FOR DUONEBS AND PCXR
--- NOTE | 2019-05-06 01:00 | NUR ---
DUONEB AT 0042 BY RT, PCXR AT 0052, RESULTS DICTATED AT 0057 AND SHOW IMPROVMENTS FROM PREVIOUS CXR AND NO ACUTE CARDIOPULMONARY PROCESS. PT'S RESP HAVE BECOME LESS LABORED, PT IS NOT RESTLESS. PT'S COUGH EFFORT HAS IMPROVED AND PT HAS BEEN ABLE TO CLEAR LUNGS WITH COUGH. WILL CON'T TO MONITOR.
--- NOTE | 2019-05-06 01:30 | NUR ---
PT SITTING AT BEDSIDE DRINKING COFFEE. NO DISTRESS, RESP REG AND UNLABORED. CALL DE LEON WITHIN REACH, AGREES TO CALL PRN.
--- NOTE | 2019-05-06 03:29 | NUR ---
PT APPEARS TO BE SLEEPING COMFORTABLY. NO APPARENT DISTRESS OR DISCOMFORT. RESP REG AND UNLABORED. CALL DE LEON REMAINS WITHIN REACH.
--- NOTE | 2019-05-06 05:55 | NUR ---
PT W/ C/O SOB, RESPIRATIONS VISIBLY LABORED, RHONCHI IS AUDIBLE. COARSE CRACKLES THROUGHOUT. PULSE OX APPLIED FOR MONITORING, O2SAT 92%. ENCOURAGED PT TO TAKE DEEP BREATHS AND COUGH TO ATTEMPT TO CLEAR CONGESTION. O2 SAT DECREASED TO 80% THEN 70%. O2 INCREASED TO 3L. RAPID RESPONSE CALLED. SEE RAPID RESPONSE RECORD.
[2019-05-06 06:49] LABS: HEMATOCRIT 33.6 % (37.0-47.0); HEMOGLOBIN 10.6 g/dl (12.0-16.0); IMMATURE GRANULOCYTES 3.1 % (0.0-5.0); MEAN CELL VOLUME 88.7 fL CALC (80.0-100.0); MEAN CORPUSCULAR HGB CONC 31.5 g/L CALC (32.0-36.0); NEUT# 9.02 thou/uL (2.00-7.15); RED BLOOD COUNT 3.79 mill/uL (4.20-5.60)
[2019-05-06 07:06] LABS: ALKALINE PHOSPHATASE 220 u/l (38-126); ANION GAP 11 (6-22 (CALC)); BILIRUBIN, TOTAL 0.3 mg/dL (0.0-1.4); BUN 41 mg/dL (8-23); BUN/CREATININE RATIO 41 (12-20 (CALC)); CARBON DIOXIDE 30 mmol/l (22-30); CHLORIDE 99 mmol/l (95-108); GFR 54 ML/MIN (>=60 (CALC)); GFR FOR AFR.AMER. > 60 ML/MIN (>=60 (CALC)); POTASSIUM 4.5 mmol/l (3.5-5.1); SODIUM 136 mmol/l (137-146); TOTAL PROTEIN 6.7 g/dL (6.3-8.2)
[2019-05-06 07:11] LABS: ALBUMIN 3.7 g/dL (3.2-5.0); SGOT/AST 95 u/l (9-36)
--- NOTE | 2019-05-06 07:15 | NUR ---
PT RESP STATUS HAS IMPROVED MARKEDLY, PT IS CURRENTLY IN NO DISTRESS. NO MORE AUDIBLE RHONCHI. O2SAT 98% ON 5L/NC. ORDER RECEIVED TO TRANSFER TO ICU FOR MONITORING.
--- NOTE | 2019-05-06 07:25 | NUR ---
PT ASSIGNED TO ICU ROOM #8, REPORT GIVEN TO THERESE PINEDO
--- NOTE | 2019-05-06 07:31 | NUR ---
LEFT A MESSAGE ON HER DAUGHTER BASSEM'S PHONE TO CALL THE HOSPITAL.
--- NOTE | 2019-05-06 08:02 | NUR ---
TRANSFERED PT TO ICU BED 8 VIA BED . PT TOELRATED MOVE WELL
--- NOTE | 2019-05-06 08:13 | NUR ---
PT ARRIVED TO ICU 8 IN STABLE CONDITION; CONNECTED TO ATTACHMENTS. PT SITTING UP ALERT AND ORIENTED X 3; VERY TALKATIVE AND ASKING FOR BREAKFAST. 99% SPO2 ON 3L VIA NC; TITRATED DOWN TO 2L AND SET UP FOR BREAKAST. RT AT BEDSIDE FOR EVAL. ACCU CHECK 188; 2 UNITS GIVEN. PT ORIENTED TO ROOM AND CALL LIGHT SYSTEM. PLAN OF CARE REVIEWED. PT ENCOURAGED TO VERBALIZE CONCERNS. REQUESTING TO BE DISCHARGED HOME. SAFETY MEASURES IN PLACE. CALL LIGHT WITHIN REACH.
--- NOTE | 2019-05-06 08:20 | NUR ---
CALLED BONILLA TO LET KNOW OF THE MOVE TO ICU. APPRECIATED THE PHONE CALL.
--- NOTE | 2019-05-06 09:24 | NUR ---
DAUGHTER CALLED FOR UPDATE. PT ATE 100% OF BREAKFAST AND IS NOW RESTING WITH EYES CLOSED. 100% SPO2 ON 2L NC.
--- NOTE | 2019-05-06 09:45 | NUR ---
YANICK COX AT BEDSIDE.
--- NOTE | 2019-05-06 10:48 | NUR ---
PT FREQUENTLY REQUESTING SNACKS. CHRISTY PROVIDED.
--- NOTE | 2019-05-06 13:08 | NUR ---
PT C/O ITCHING TO BOTTOM; BRIEF REMOVED AND POWDER APPLIED. TYLENOL GIVEN FOR GENERALIZED DISCOMFORT. FAMILY AT BEDSIDE.
--- NOTE | 2019-05-06 15:51 | NUR ---
INCONTINENT OF LARGE BOWEL MOVEMENT. APRESOLINE GIVEN FOR ELEVATED BLOOD PRESSURE. PT VERY AGITATED AND YELLING OUT FOR HELP AND OTHER GENERAL NEEDS. DURING CARE PT CONTINUED TO YELL FOR HELP SHE WAS BEING HELPED; THEN APOLOGIZED FOR YELLING. CONTINUES TO BE INSISTANT THAT SHE NEEDS TO BE DISCHARGED. PT REQUESTING MORE TO EAT AFTER EATING 2 LUNCHES; STATES THAT SHE DID NOT EAT ALL OF HER LUNCH WHEN SHE DID EAT 100% OF 2 TRAYS. ASKING FOR A SANDWHICH.
--- NOTE | 2019-05-06 19:45 | NUR ---
RESTING IN BED IN FOWLERS POSITON. ALERT, ORIENTED TO PERSON AND ABLE TO STATE HER BIRTHDATE AND THAT SHE IS IN [facility] [address]. UNALBE TO STATE MONTH OR YEAR. SPEECH IS CLEAR. FOLLOW ALL COMMANDS. MOVES ALL EXTREMITIES EQUAL AND WELL. RESP NON-LABORED AT REST. USING O2 AT 2 L NC. BREATH SOUNDS CLEAR IN UPPER LOBES WITH BIBASILAR CRACKLES. 3+ PITTING EDEMA OF BLE. PERIPHERAL PULSES PALPABLE. SALINE LOCK INTACT IN LAC, SITE BENIGN. MONITOR SHOWS SR WITH PAC'S. EXPLAINED PLAN OF CARE. CALL DE LEON IN REACH.
--- NOTE | 2019-05-06 22:00 | NUR ---
TLYENOL 650 MG PO GIVEN FOR C/O ACHING IN RT LEG AND LOWER BACK. RESTORIL GIVEN FOR SLEEP.
--- NOTE | 2019-05-06 22:15 | NUR ---
PLACED ON BIPAP BY RT.
--- NOTE | 2019-05-06 23:58 | NUR ---
SLEEPING. BIPAP IN PLACE. SR WITH OCC PAC'S ON MONITOR.
[2019-05-07] VITALS (10 sets, daily range): BP systolic 117–186; BP diastolic 56–82
--- NOTE | 2019-05-07 01:45 | NUR ---
SLEEPING SOUNDLY. RESP NON-LABORED. ON BIPAP. MONITOR SR WITH PAC'S.
--- NOTE | 2019-05-07 03:58 | NUR ---
PATIENT HAS SLEPT SOUNDLY SINCE PLACED ON BIPAP LAST EVENING. RESP NON-LABORED. O2 SAT 100%
--- NOTE | 2019-05-07 06:15 | NUR ---
JACI TO NAME FOR AM 0600 MED. VSS. NO CHANGES TO REPORT.
--- NOTE | 2019-05-07 07:30 | NUR ---
REPORT RECEIVED FROM KHRIS DOMINGUEZ. PT RESTING SEMI FOWLERS WITH CPAP ON AND EYES CLOSED; NO SIGNS OF DISTRESS. RESPIRATIONS EVEN AND UNLABORED. SAFETY MEASURES IN PLACE. CALL LIGHT WITHIN REACH.
--- NOTE | 2019-05-07 07:50 | NUR ---
CPAP REMOVED FOR BREAKFAST; NOW ON OXYGEN 2L VIA NC. ACCU CHECK 139.
[2019-05-07] MEDS ORDERED: LANTUS100 UNIT/M SC (08:52)
[2019-05-07] MEDS ORDERED: PREDNISONE10 MG PO (08:52)
[2019-05-07] MEDS ORDERED: LOSARTAN POTASS50 MG PO (08:52)
[2019-05-07] MEDS ORDERED: TEMAZEPAM15 MG PO (08:52)
[2019-05-07] MEDS ORDERED: CARVEDILOL6.25 MG PO (08:52)
--- NOTE | 2019-05-07 09:55 | NUR ---
PT YELLING OUT TO [facility] AND FREQUENTLY REQUESTING SNACKS; MORE BREAKFAST ORDERED AND SANDWHICH GIVEN, BUT PT STILL REQUESTING MORE SNACKS. INCONTINENT OF URINE; DIONICIO CARE PROVIDED. CASE MANAGEMENT AT BEDSIDE ARRANGING DISCHARGE TO [facility].
--- NOTE | 2019-05-07 10:58 | NUR ---
ZYPREXA IM GIVEN AT THIS TIME FOR INCREASED ANXIETY AND AGITATION FROM PT. PT CONTINUOUSLY USING CALL LIGHT AND CALLING OUT WHEN ALL NEEDS ARE MET. ACCU CHECK 216; 4 UNITS GIVEN.
--- NOTE | 2019-05-07 11:21 | NUR ---
DAUGHTER ON UNIT; SPOKE WITH CASE MANAGEMENT.
--- NOTE | 2019-05-07 13:49 | NUR ---
[facility] AT BEDSIDE TO TRANSPORT PT TO [facility]. PT ALERT AND ORIENTED X 2.
--- NOTE | 2019-05-07 13:57 | NUR ---
Discharge instructions given. Discharged in stable condition via [facility] to [facility]. All belongings sent with pt. Report called to Luzma.
== END 2019-05-07 13:50 | DRG 193 ==
LOC: ED 18:15 → ED-I 04-28 00:10 → ED 04-28 01:17 → MS2 04-28 01:18 → ICU 05-06 07:15
PROVIDERS: Emergency Medicine; Nurse Practitioner Family; ADMIT Internal Medicine; ATTEND Internal Medicine
DX: J18.9 Pneumonia, unspecified organism (principal); J96.22 Acute and chronic respiratory failure with hypercapnia; J96.21 Acute and chronic respiratory failure with hypoxia; F03.91 Unspecified dementia, unspecified severity, with behavioral disturbance; N17.9 Acute kidney failure, unspecified; J43.9 Emphysema, unspecified; E11.22 Type 2 diabetes mellitus with diabetic chronic kidney disease; I12.9 Hypertensive chronic kidney disease with stage 1 through stage 4 chronic kidney disease, or unspecified chronic kidney disease; N18.3 Chronic kidney disease, stage 3 (moderate); E03.9 Hypothyroidism, unspecified; M19.90 Unspecified osteoarthritis, unspecified site; T50.916A Underdosing of multiple unspecified drugs, medicaments and biological substances, initial encounter; E11.649 Type 2 diabetes mellitus with hypoglycemia without coma; I16.0 Hypertensive urgency; E86.0 Dehydration; Y95 Nosocomial condition; Z87.891 Personal history of nicotine dependence; Z79.84 Long term (current) use of oral hypoglycemic drugs; Z91.130 Patient's unintentional underdosing of medication regimen due to age-related debility; Z91.81 History of falling; Z99.81 Dependence on supplemental oxygen
CPT/HCPCS: S0166